=== PATIENT | female | born 1990 | race Caucasian/White ===

== ENCOUNTER 2016-12-01 15:45 | Emergency (ER) | payer OTHER ==
--- NOTE | 2016-12-01 17:55 | ED ORDER SUMMARY ---
..... Patient: NELSON REYNOSO N OrderSheet [facility] VisitID: [id number] [place] [address] 26y, F Registration Date/Time: 12/01/2016 ORDER SHEET Weight: 47.6 kg (stated) Allergies: Compazine GENERAL ORDERS: CBC w Diff Urgent (16:03 12/01/2016 SThom A.R.N.P.) (Ack 16:16 TBergley) (17:38 DDean R.N.) Type & Rh Urgent (16:03 12/01/2016 SThom A.R.N.P.) (Ack 16:16 TBergley) (17:38 DDean R.N.) Serum Quantitative Urgent (16:03 12/01/2016 SThom A.R.N.P.) (Ack 16:16 TBergley) (17:38 DDean R.N.) Wet Prep (Vaginal) (swab) Urgent (16:22 12/01/2016 SThom A.R.N.P.) (16:29 TBergley) GC/Chlamydia (Cervix) (swab) Urgent (16:22 12/01/2016 SThom A.R.N.P.) (16:28 TBergley) Urinalysis Urgent (16:23 12/01/2016 SThom A.R.N.P.) (16:28 TBergley) Urine Urgent (16:23 12/01/2016 SThom A.R.N.P.) (16:28 TBergley) US Pelvic Complete w Transvag Urgent (16:23 12/01/2016 SThom A.R.N.P.) (Ack 16:29 TBergley) (Cancelled: Other17:25 TBergley) US OB 1st Trimester w Transvag (5 weeks) Urgent (17:24 12/01/2016 TBergley written order SThom A.R.N.P.) (Ack 17:26 TBergley) (17:38 DDean R.N.) MEDICATION ORDERS: RhoGAM IM 300 mcg (NOW) (17:44 12/01/2016 SThom A.R.N.P.) (Ack 17:45 DDean R.N.) (17:52 DDean R.N.) IV FLUIDS: ORDER SHEET NOTES: Reason for Study: Abnormal Bleeding US Pelvic Complete w Transvag Comments: LMP 10/23/16 (16:24 12/01/2016 Sadia MichaelR.N.P.) [Electronically signed by Berta Hansen R.N. (22:31 12/01/2016)] [Electronically signed by Chana CortezN.PShikha (23:37 12/01/2016)] [Electronically locked/signed by Berta Hansen R.N. (22:31 12/01/2016)]
--- NOTE | 2016-12-01 17:55 | ED NURSING NOTES ---
Clinical Report - Nurses [facility] [address] [place] [address] 12/01/2016 15:47 Patient: NELSON REYNOSO TRIAGE Triage time 1555. Acuity: LEVEL 3. 15:55. --16:03 Berta Hansen R.N. 15:55 12/01/16. BP: 154/94. HR: 73. RR: 20. O2 saturation: 99%. Temp: 98.7 F. Pain level now: 11/09. --16:03 Berta Hansen R.N. Triage time 1555. Chief Complaint: SPOTTING. --22:31 Berta Hansen R.N. Weight: 47.6 kg stated. Height/Length: 63 inches Per Patient. BMI: 18.6. --16:00 Berta Hansen R.N. Medications TraZODone HCl Oral, at bedtime, for sleep (tapering off, has been without for 2-3 nights ). --16:02 Berta Hansen R.N. Vitamins Oral. --16:02 Berta Hansen R.N. Allergies Compazine. --16:02 Berta Hansen R.N. History Arrived by private vehicle. Historian: patient. Unaccompanied. Primary physician (Efrain). Onset. (spotting , and -- passed alot of blood at 5:30pm yesterday, has not had any more bleeding today. having nausea , and constant ache). ( had a miscarriage 09/14 had D&C after that (and set of her CVS)). No vomiting. PAST MEDICAL HX: OB history: G 3; P 1; Ab 1. SOCIAL HX: Never smoker. History of drug use: marijuana. No alcohol use. --16:03 Berta Hansen R.N. PROBLEMS: Vomiting. Spontaneous (Miscarriage). Cyclical vomiting syndrome. Fibromyalgia. Endometritis. --16:03 Berta Hansen R.N. ADDITIONAL SURGERIES: Laparoscopy. Tonsillectomy. --16:03 Berta Hansen R.N. Interventions ID band on patient. To treatment room. --16:03 Berta Hansen R.N. PHYSICAL ASSESSMENT 15:55. Ambulatory to room. Patient gowned. GENERAL / NEURO / PSYCH: Alert. Oriented X 4. Appears in pain. RESPIRATORY: Respirations not labored. CVS: Capillary refill less than 2 seconds. GI / : ( denies pain with urination, denies frequency or urgency). SKIN: Skin is warm and dry. --16:05 Berta Hansen R.N. NURSING PROGRESS NOTES 15:55. Patient gowned. Head of bed elevated. Reassurance given. Patient identifiers checked. Call light placed in reach. Side rails up. Bed placed in lowest position. Patient ready for evaluation- chart flagged. --16:04 Berta Hansen R.N. 16:13 12/01/16. Patient ID band checked for patient name and birthdate: patient confirmed. Clean catch urine collected with return of yellow-colored clear urine; sample sent to lab. Specimen labeled in the presence of the patient. --16:13 Berta Hansen R.N. 16:20. PELVIC EXAM: Pelvic exam performed by [employer] OPERATOR. Assisted by one nurse. Preparation: pelvic tray; patient placed in lithotomy position. Procedure: speculum exam. Specimens collected and sent to lab: GC, chlamydia and DNA probe. Status post-procedure: she was stable. Total time of assist / procedure: 15 minutes. --16:25 Berta Hansen R.N. 16:34 12/01/16. Patient ID band checked for patient name and birthdate: patient confirmed. Blood samples drawn by lab per protocol ; labeled in presence of the patient and sent to lab: rainbow set. --16:34 Berta Hansen R.N. 16:35 12/01/16. ( Pt given water, and informed of US ETA). --16:35 Berta Hansen R.N. 17:22 US in room to do exam. --17:37 Berta Hansen R.N. 17:47 12/01/2016 Rhogam IM 300 mcg given. Given in the right ventral gluteus. Allergies verified and confirmed 5 rights. --17:52 Berta Hansen R.N. 17:50 Pt given Rhogam, talking with ERNP at length regarding findings and follow up. --22:30 Berta Hansen R.N. DISPOSITION / DISCHARGE 18:00. Condition at departure: stable. No learning barriers present. Discharge instructions provided and reviewed with the patient. Treatments reviewed (repeat preg level saturday). Reviewed referrals (follow up with your Dr. on Saturday). Patient verbalized understanding. Written instructions provided in Iraqi. The patient was discharged home and unaccompanied at time of discharge. She left the Emergency Department ambulatory and via private vehicle. Patient driving. --22:29 Berta Hansen R.N. 18:00 12/01/16. BP: 138/86. HR: 72. RR: 18. O2 saturation: 100%. Temp: deferred. Pain level now: 11/09. --22:29 Berta Hansen R.N. Locked/Released at 12/01/2016 22:31 by Berta Hansen R.N.
--- NOTE | 2016-12-01 17:55 | ED CLINICAL REPORT ---
Clinical Report - Physicians/Mid Levels [facility] [address] [place] [address] 12/01/2016 15:47 Patient: NELSON REYNOSO Time Seen: 1615 PM. Arrived- By private vehicle. Historian- patient. HISTORY OF PRESENT ILLNESS Chief Complaint: VAGINAL BLEEDING. This started 3 days-spotted Sat/-heavy bldg last PM-now just slightly crampy and still present. The symptoms are described as mild. Modifying factors. Not worsened by anything. Not relieved by anything. The patient has had mild, crampy abdominal pain. The pain is described as located in the suprapubic region and lower abdomen. No nausea or vomiting. No pelvic pain, vaginal pain, vaginal discharge, vaginal itching or genital lesions. No pain with urination. Currently : LNMP: Oct 23 EDC: Jul 30. In 1st trimester. Has had care in clinic. G 3. P 1. Ab 1. Receiving care. Similar symptoms previously: Recent medical care: The patient was seen recently in a clinic (quant drawn this AM at clinic-sent out). REVIEW OF SYSTEMS No nausea, vomiting, diarrhea, fever or chills. PAST HISTORY See nurses notes. Endometriosis. ( 09/14: SAB, cytotec for incomplete SAB Cyclic vomiting syndrome, chronic pelvic/abd pain,fibro (has guidelines in [facility])). No history of ectopic , hypertension or diabetes mellitus. Surgeries: Laparoscopy. Tonsillectomy. Medications: Vitamins Oral. TraZODone HCl Oral, at bedtime, for sleep (tapering off, has been without for 2-3 nights ). Allergies: Compazine. SOCIAL HISTORY Never smoker. History of occasional drug use: marijuana. No alcohol use. ADDITIONAL NOTES The nursing notes have been reviewed. PHYSICAL EXAM Vital Signs: 12/01/2016 15:55 BP: 154/94. HR: 73. RR: 20. O2 saturation: 99%. Temp: 98.7 F. Pain level now: 2/10. Have been reviewed and appear to be correct. Appearance: Alert. Oriented X3. No acute distress. Anxious. HEENT: Normal external inspection. Neck: Neck supple. Respiratory: No respiratory distress. Abdomen: Soft and nontender. : Speculum exam performed. External inspection normal. Slight vaginal bleeding, consisting of dark blood, ((scant amt in vault)). Cervical os open slightly. Skin: Skin warm and dry. Normal skin color. Normal skin turgor. Neuro: Oriented X 3. Mood/affect normal. LABS, X-RAYS, AND EKG Pelvic Sonogram: An intrauterine (gestational sac w/ yolk) is present. A small subchorionic hemorrhage is present. No cardiac activity visualized. An ovarian cyst is present. No free fluid. Laboratory Tests: Laboratory tests have been ordered, with results reviewed and considered in the medical decision making process. Urinalysis: (MATI: 12/01/2016 16:10) ( [facility] 12/01/2016 17:17) Final results Test Result Flag Units (Reference) URINE COLOR YELLOW URINE APPEARANCE CLEAR URINE GLUCOSE NEGATIVE (NEGATIVE) URINE BILIRUBIN NEGATIVE (NEGATIVE) URINE KETONE TRACE (NEGATIVE) URINE SPECIFIC GRAVITY 1.015 (1.010-1.030) URINE PH 7.0 (5.0-8.0) URINE PROTEIN NEGATIVE (NEGATIVE) URINE UROBILINOGEN 0.2 EU/dL (0.2-1.0) URINE NITRITE NEGATIVE (NEGATIVE) URINE BLOOD NEGATIVE (NEGATIVE) URINE LEUKOCYTE ESTERASE NEGATIVE (NEGATIVE) URINE RBC NONE SEEN rbc/hpf (0-1) URINE WBC NONE SEEN wbc/hpf (0-1) URINE EPITHELIAL CELLS 0-1 EPI/hpf (0-5) URINE BACTERIA NONE SEEN (NONE SEEN) URINE COMMENT N Urine: (MATI: 12/01/2016 16:10) ( [facility] [place] 12/01/2016 16:36) Final results Test Result Flag Units (Reference) URINE POSITIVE CBC w Diff: (MATI: 12/01/2016 16:30) ( [facility] [place] 12/01/2016 17:14) Final results Test Result Flag Units (Reference) WHITE BLOOD COUNT 10.9 K/uL (4.5-11.5) RED BLOOD COUNT 4.20 M/uL (4.00-5.20) HEMOGLOBIN 12.7 gm/dL (12.0-16.0) HEMATOCRIT 38.0 % (36.0-46.0) MEAN CELL VOLUME 90 fL (80-100) MEAN CORPUSCULAR HGB 30 pg (26-34) MEAN CORPUSCULAR HGB CONC 33 g/dL (31-37) RED CELL DISTRIBUTION WIDTH 13.5 % (11.6-14.8) PLATELET COUNT 355 K/uL (150-400) NEUTROPHIL % 65.6 % (50-75) LYMPH % 26.5 % (25-40) MONO % 7.4 % (3-14) EOSINOPHIL % 0.3 % (0-4) BASOPHIL % 0.2 % (0-2) Serum Quantitative: (MATI: 12/01/2016 16:30) ( [facility] [place] 12/01/2016 17:47) Final results Test Result Flag Units (Reference) BETA HCG, QUANTITATIVE 13566 mIU/mL REFERENCE RANGE:Adult Males: <2 mIU/mLNon- Females: <6 mIU/mL Females:Approximate Approximate hCGGestational Age Range (mIU/mL) 0-1 week 0-501-2 weeks 40-3002-3 weeks 100-44486-9 weeks 500-91085-3 months 5,000-200,0002-3 months 10,000-100,0002nd trimester 3,000-50,0003rd trimester 1,000-50,000 Wet Prep: (MATI: 12/01/2016 16:20) ( [facility] 12/01/2016 16:51) Final results SPECIMEN DESCRIPTION: SWAB Test Result Flag Units (Reference) WET MOUNT CLUE CELLS:: NONE EPITHELIAL CELLS: 2+ -- SOURCE?: CERVIX WHITE BLOOD CELLS: 2+ TRICHOMONAS:: NONE -- YEAST:: NONE Type & Rh: (MATI: 12/01/2016 16:30) ( [facility] 12/01/2016 17:32) Final results Test Result Flag Units (Reference) PATIENT BLOOD TYPE A Negative . PROGRESS AND PROCEDURES Course of Care: Rh negative-Rhogam given Miscarried in Dec-anxious something wrong w/ her Supportive discussion US reassuring=sac noted within uterus, approp to gest age Subchorionic bleed explained Has appt Mond-will keep. Rest for peace of mind (not actual prevention of bad outcome) suggested-and nothing in vagina til released. Patient is stable. Patient/family counseled. Disposition: Discharged. Condition: stable. CLINICAL IMPRESSION First trimester subchorionic hemorrhage. Threatened . INSTRUCTIONS No strenuous activity. No sexual contact. (You will need a repeat hormone test next week. See your provider on Saturday. No evidence of infection Nothing in vagina til released Rhogam given Test Result Flag (Reference) PATIENT BLOOD TYPE A Negative Serum Quantitative: (MATI: 12/01/2016 16:30) ( [facility] 12/01/2016 17:47) Final results Test Result Flag (Reference) BETA HCG, QUANTITATIVE 12004 mIU/mL -appropriate). Warnings: GENERAL WARNINGS: Return or contact your physician immediately if your condition worsens or changes unexpectedly, if not improving as expected, or if other problems arise. Follow-up: Follow up with your doctor Saturday in about. Understanding of the discharge instructions verbalized by patient. (Electronically signed by Chana Cortez A.R.N.P. 12/01/2016 23:37)
--- NOTE | 2016-12-01 17:55 | ED CLINICAL REPORT ---
Clinical Report - Physicians/Mid Levels [facility] [address] [place] [address] 12/01/2016 15:47 Patient: NELSON REYNOSO Time Seen: 1615 PM. Arrived- By private vehicle. Historian- patient. HISTORY OF PRESENT ILLNESS Chief Complaint: VAGINAL BLEEDING. This started 3 days-spotted Sat/-heavy bldg last PM-now just slightly crampy and still present. The symptoms are described as mild. Modifying factors. Not worsened by anything. Not relieved by anything. The patient has had mild, crampy abdominal pain. The pain is described as located in the suprapubic region and lower abdomen. No nausea or vomiting. No pelvic pain, vaginal pain, vaginal discharge, vaginal itching or genital lesions. No pain with urination. Currently : LNMP: Oct 23 EDC: Jul 30. In 1st trimester. Has had care in clinic. G 3. P 1. Ab 1. Receiving care. Similar symptoms previously: Recent medical care: The patient was seen recently in a clinic (quant drawn this AM at clinic-sent out). REVIEW OF SYSTEMS No nausea, vomiting, diarrhea, fever or chills. PAST HISTORY See nurses notes. Endometriosis. ( 09/14: SAB, cytotec for incomplete SAB Cyclic vomiting syndrome, chronic pelvic/abd pain,fibro (has guidelines in [facility])). No history of ectopic , hypertension or diabetes mellitus. Surgeries: Laparoscopy. Tonsillectomy. Medications: Vitamins Oral. TraZODone HCl Oral, at bedtime, for sleep (tapering off, has been without for 2-3 nights ). Allergies: Compazine. SOCIAL HISTORY Never smoker. History of occasional drug use: marijuana. No alcohol use. ADDITIONAL NOTES The nursing notes have been reviewed. PHYSICAL EXAM Vital Signs: 12/01/2016 15:55 BP: 154/94. HR: 73. RR: 20. O2 saturation: 99%. Temp: 98.7 F. Pain level now: 2/10. Have been reviewed and appear to be correct. Appearance: Alert. Oriented X3. No acute distress. Anxious. HEENT: Normal external inspection. Neck: Neck supple. Respiratory: No respiratory distress. Abdomen: Soft and nontender. : Speculum exam performed. External inspection normal. Slight vaginal bleeding, consisting of dark blood, ((scant amt in vault)). Cervical os open slightly. Skin: Skin warm and dry. Normal skin color. Normal skin turgor. Neuro: Oriented X 3. Mood/affect normal. LABS, X-RAYS, AND EKG Pelvic Sonogram: An intrauterine (gestational sac w/ yolk) is present. A small subchorionic hemorrhage is present. No cardiac activity visualized. An ovarian cyst is present. No free fluid. Laboratory Tests: Laboratory tests have been ordered, with results reviewed and considered in the medical decision making process. Urinalysis: (MATI: 12/01/2016 16:10) ( [facility] 12/01/2016 17:17) Final results Test Result Flag Units (Reference) URINE COLOR YELLOW URINE APPEARANCE CLEAR URINE GLUCOSE NEGATIVE (NEGATIVE) URINE BILIRUBIN NEGATIVE (NEGATIVE) URINE KETONE TRACE (NEGATIVE) URINE SPECIFIC GRAVITY 1.015 (1.010-1.030) URINE PH 7.0 (5.0-8.0) URINE PROTEIN NEGATIVE (NEGATIVE) URINE UROBILINOGEN 0.2 EU/dL (0.2-1.0) URINE NITRITE NEGATIVE (NEGATIVE) URINE BLOOD NEGATIVE (NEGATIVE) URINE LEUKOCYTE ESTERASE NEGATIVE (NEGATIVE) URINE RBC NONE SEEN rbc/hpf (0-1) URINE WBC NONE SEEN wbc/hpf (0-1) URINE EPITHELIAL CELLS 0-1 EPI/hpf (0-5) URINE BACTERIA NONE SEEN (NONE SEEN) URINE COMMENT N Urine: (MATI: 12/01/2016 16:10) ( [facility] [place] 16:36) Final results Test Result Flag Units (Reference) URINE POSITIVE CBC w Diff: (MATI: 12/01/2016 16:30) ( [facility] [place] 17:14) Final results Test Result Flag Units (Reference) WHITE BLOOD COUNT 10.9 K/uL (4.5-11.5) RED BLOOD COUNT 4.20 M/uL (4.00-5.20) HEMOGLOBIN 12.7 gm/dL (12.0-16.0) HEMATOCRIT 38.0 % (36.0-46.0) MEAN CELL VOLUME 90 fL (80-100) MEAN CORPUSCULAR HGB 30 pg (26-34) MEAN CORPUSCULAR HGB CONC 33 g/dL (31-37) RED CELL DISTRIBUTION WIDTH 13.5 % (11.6-14.8) PLATELET COUNT 355 K/uL (150-400) NEUTROPHIL % 65.6 % (50-75) LYMPH % 26.5 % (25-40) MONO % 7.4 % (3-14) EOSINOPHIL % 0.3 % (0-4) BASOPHIL % 0.2 % (0-2) Serum Quantitative: (MATI: 12/01/2016 16:30) ( [facility] [place]/01[facility] 17:47) Final results Test Result Flag Units (Reference) BETA HCG, QUANTITATIVE 71239 mIU/mL REFERENCE RANGE:Adult Males: <2 mIU/mLNon- Females: <6 mIU/mL Females:Approximate Approximate hCGGestational Age Range (mIU/mL) 0-1 week 0-501-2 weeks 40-3002-3 weeks 100-02197-0 weeks 500-68261-9 months 5,000-200,0002-3 months 10,000-100,0002nd trimester 3,000-50,0003rd trimester 1,000-50,000 Wet Prep: (MATI: 12/01/2016 16:20) ( [facility] 12/01/2016 16:51) Final results SPECIMEN DESCRIPTION: SWAB Test Result Flag Units (Reference) WET MOUNT CLUE CELLS:: NONE EPITHELIAL CELLS: 2+ -- SOURCE?: CERVIX WHITE BLOOD CELLS: 2+ TRICHOMONAS:: NONE -- YEAST:: NONE Type & Rh: (MATI: 12/01/2016 16:30) ( [facility] 12/01/2016 17:32) Final results Test Result Flag Units (Reference) PATIENT BLOOD TYPE A Negative . PROGRESS AND PROCEDURES Course of Care: Rh negative-Rhogam given Miscarried in Dec-anxious something wrong w/ her Supportive discussion US reassuring=sac noted within uterus, approp to gest age Subchorionic bleed explained Has appt Mond-will keep. Rest for peace of mind (not actual prevention of bad outcome) suggested-and nothing in vagina til released. Patient is stable. Patient/family counseled. Disposition: Discharged. Condition: stable. CLINICAL IMPRESSION First trimester subchorionic hemorrhage. Threatened . INSTRUCTIONS No strenuous activity. No sexual contact. (You will need a repeat hormone test next week. See your provider on Saturday. No evidence of infection Nothing in vagina til released Rhogam given Test Result Flag (Reference) PATIENT BLOOD TYPE A Negative Serum Quantitative: (MATI: 12/01/2016 16:30) ( [facility] 12/01/2016 17:47) Final results Test Result Flag (Reference) BETA HCG, QUANTITATIVE 66236 mIU/mL -appropriate). Warnings: GENERAL WARNINGS: Return or contact your physician immediately if your condition worsens or changes unexpectedly, if not improving as expected, or if other problems arise. Follow-up: Follow up with your doctor Saturday in about. Understanding of the discharge instructions verbalized by patient. (Electronically signed by Chana Cortez A.R.N.P. 12/01/2016 23:37)
--- NOTE | 2016-12-01 17:55 | ED ORDER SUMMARY ---
..... Patient: NELSON REYNOSO N OrderSheet [facility] VisitID: [id number] [place] [address] 26y, F Registration Date/Time: 12/01/2016 ORDER SHEET Weight: 47.6 kg (stated) Allergies: Compazine GENERAL ORDERS: CBC w Diff Urgent (16:03 12/01/2016 SThom A.R.N.P.) (Ack 16:16 TBergley) (17:38 DDean R.N.) Type & Rh Urgent (16:03 12/01/2016 SThom A.R.N.P.) (Ack 16:16 TBergley) (17:38 DDean R.N.) Serum Quantitative Urgent (16:03 12/01/2016 SThom A.R.N.P.) (Ack 16:16 TBergley) (17:38 DDean R.N.) Wet Prep (Vaginal) (swab) Urgent (16:22 12/01/2016 SThom A.R.N.P.) (16:29 TBergley) GC/Chlamydia (Cervix) (swab) Urgent (16:22 12/01/2016 SThom A.R.N.P.) (16:28 TBergley) Urinalysis Urgent (16:23 12/01/2016 SThom A.R.N.P.) (16:28 TBergley) Urine Urgent (16:23 12/01/2016 SThom A.R.N.P.) (16:28 TBergley) US Pelvic Complete w Transvag Urgent (16:23 12/01/2016 SThom A.R.N.P.) (Ack 16:29 TBergley) (Cancelled: Other17:25 TBergley) US OB 1st Trimester w Transvag (5 weeks) Urgent (17:24 12/01/2016 TBergley written order SThom A.R.N.P.) (Ack 17:26 TBergley) (17:38 DDean R.N.) MEDICATION ORDERS: RhoGAM IM 300 mcg (NOW) (17:44 12/01/2016 SThom A.R.N.P.) (Ack 17:45 DDean R.N.) (17:52 DDean R.N.) IV FLUIDS: ORDER SHEET NOTES: Reason for Study: Abnormal Bleeding US Pelvic Complete w Transvag Comments: LMP 10/23/16 (16:24 12/01/2016 Sadia MichaelR.N.P.) [Electronically signed by Berta Hansen R.N. (22:31 12/01/2016)] [Electronically signed by Chana CortezN.PShikha (23:37 12/01/2016)] [Electronically locked/signed by Berta Hansen R.N. (22:31 12/01/2016)]
--- NOTE | 2016-12-01 18:13 | DIAGNOSTIC IMAGING REPORT ---
PROCEDURE: US OB 1ST TRIMESTER W/TRANSVAG INDICATION: BLEEDING TECHNIQUE: Milligan scale, color, and spectral Doppler transabdominal and endovaginal sonographic images of the first trimester gravid uterus were obtained. COMPARISON: None. FINDINGS: TRANSABDOMINAL SCANS: Single intrauterine gestational sac. TRANSVAGINAL SCANS: Yolk sac is present. No pole present. Gestational sac diameter 9.7 mm, 6 weeks. There is a subchorionic hemorrhage which measures 120 x 1.6 x 0.5 cm. Left corpus luteum cyst. IMPRESSION: 1. Single intrauterine gestational sac without pole. Recommend follow-up Beta hCG and ultrasound 2. Subchorionic hemorrhage.
--- NOTE | 2016-12-01 23:38 | ED MED RECONCILIATION SUMMARY ---
Patient: NELSON REYNOSO Medication Reconciliation Report [facility] VisitID: [id number] [address] [place] [address] 26y, F Registration Date/Time: 12/01/2016 Weight: 47.6 kg Height/Length: 63 in. BMI: 18.6 ALLERGIES: Compazine The patient's Home Medications are listed below: THE FOLLOWING MEDICATIONS NEED TO BE RECONCILED: Vitamins Oral TraZODone HCl Oral, at bedtime, for sleep, tapering off, has been without for 2-3 nights The source(s) of the original Home Medication information: Not obtained. The following Medications were given to the patient in the Emergency Department: Rhogam [IM] IM 300 mcg, administered: 12/01/2016 5:47:00 PM The following Medications were prescribed to the patient: None.
--- NOTE | 2016-12-01 23:38 | ED DISCHARGE INSTRUCTIONS ---
Patient: NELSON REYNOSO General Instructions [facility] VisitID: [id number] [place] [address] 26y, F Registration Date/Time: 12/01/2016 First trimester subchorionic hemorrhage. INSTRUCTIONS No strenuous activity. No sexual contact. (You will need a repeat hormone test next week. See your provider on Saturday. No evidence of infection Nothing in vagina til released Rhogam given Test Result Flag (Reference) PATIENT BLOOD TYPE A Negative Serum Quantitative: (MATI: 12/01/2016 16:30) ( MsgRcvd 12/01/2016 17:47) Final results Test Result Flag (Reference) BETA HCG, QUANTITATIVE 00371 mIU/mL -appropriate). Warnings: GENERAL WARNINGS: Return or contact your physician immediately if your condition worsens or changes unexpectedly, if not improving as expected, or if other problems arise. Follow-up: Follow up with your doctor Saturday in about. Understanding of the discharge instructions verbalized by patient. ADDITIONAL INFORMATION Possible Miscarriage (Threatened ) During early (first three months), it is not uncommon to have a small amount of bleeding. This can be entirely normal. But heavy bleeding or severe cramping can be an early sign of miscarriage. A miscarriage means unexpected loss of your . In about half of patients with bleeding or cramping during early , these symptoms will stop and the will continue normally. However, half of the time a miscarriage will occur. A miscarriage may occur due to various causes. These include a problem with the babys chromosomes (genes that carry the information needed for life) or with fertilization or implantation that didnt happen correctly. In most cases no cause can be found. Be reassured that this is not the result of anything that you did wrong, and it will not interfere with your ability to become in the future. Home Care: To improve the chance of keeping this , you should do the following: Rest in bed until the pain and bleeding stop. Do not have sexual intercourse for the next 3 weeks. Use sanitary napkins instead of tampons. Do not douche. Follow-Up: Make an appointment with your doctor within the next week, or as directed by our staff. Note: If you had an ultrasound, it will be reviewed by a specialist. You will be notified of any new findings that may affect your care. Get Prompt Medical Attention if any of the following occur: Vaginal bleeding or pain for more than three days Heavy bleeding (soaking one new pad an hour over three hours) Fever of 100.4F (38C) or higher, or as directed by your healthcare provider Increasing lower abdominal pain Weakness, dizziness, or fainting Passage of anything that resembles tissue: pink or grayish membrane or solid material (save the tissue in a clean container and bring to the doctor) You have been given the following additional information: Possible Miscarriage (Threatened ) No strenuous activity. (Electronically signed by Chana Cortez A.R.N.P. 12/01/2016 23:37)
--- NOTE | 2016-12-01 23:38 | ED MAR SUMMARY ---
..... Medication Administration Record [facility] [address] [place] [address] Patient: NELSON REYNOSO Visit ID: [id number] 26y, F Weight: 47.6 kg Height/Length: 63 in BMI: 18.6 ALLERGIES: Compazine Given 17:47 12/01/2016 Tyrone, Joshua Hampton Medication Administered: RHOGAM [IM], Dose: 300 mcg IM. Medication Ordered: RhoGAM IM 300 mcg (NOW).
--- NOTE | 2016-12-01 23:38 | ED MAR SUMMARY ---
..... Medication Administration Record [facility] [address] [place] [address] Patient: NELSON REYNOSO Visit ID: [id number] 26y, F Weight: 47.6 kg Height/Length: 63 in BMI: 18.6 ALLERGIES: Compazine Given 17:47 12/01/2016 Tyrone, Joshua Hampton Medication Administered: RHOGAM [IM], Dose: 300 mcg IM. Medication Ordered: RhoGAM IM 300 mcg (NOW).
--- NOTE | 2016-12-01 23:38 | ED MED RECONCILIATION SUMMARY ---
Patient: NELSON REYNOSO Medication Reconciliation Report [facility] VisitID: [id number] [address] [place] [address] 26y, F Registration Date/Time: 12/01/2016 Weight: 47.6 kg Height/Length: 63 in. BMI: 18.6 ALLERGIES: Compazine The patient's Home Medications are listed below: THE FOLLOWING MEDICATIONS NEED TO BE RECONCILED: Vitamins Oral TraZODone HCl Oral, at bedtime, for sleep, tapering off, has been without for 2-3 nights The source(s) of the original Home Medication information: Not obtained. The following Medications were given to the patient in the Emergency Department: Rhogam [IM] IM 300 mcg, administered: 12/01/2016 5:47:00 PM The following Medications were prescribed to the patient: None.
--- NOTE | 2016-12-01 23:38 | ED DISCHARGE INSTRUCTIONS ---
Patient: NELSON REYNOSO General Instructions [facility] VisitID: [id number] [place] [address] 26y, F Registration Date/Time: 12/01/2016 First trimester subchorionic hemorrhage. INSTRUCTIONS No strenuous activity. No sexual contact. (You will need a repeat hormone test next week. See your provider on Saturday. No evidence of infection Nothing in vagina til released Rhogam given Test Result Flag (Reference) PATIENT BLOOD TYPE A Negative Serum Quantitative: (MATI: 12/01/2016 16:30) ( MsgRcvd 12/01/2016 17:47) Final results Test Result Flag (Reference) BETA HCG, QUANTITATIVE 61537 mIU/mL -appropriate). Warnings: GENERAL WARNINGS: Return or contact your physician immediately if your condition worsens or changes unexpectedly, if not improving as expected, or if other problems arise. Follow-up: Follow up with your doctor Saturday in about. Understanding of the discharge instructions verbalized by patient. ADDITIONAL INFORMATION Possible Miscarriage (Threatened ) During early (first three months), it is not uncommon to have a small amount of bleeding. This can be entirely normal. But heavy bleeding or severe cramping can be an early sign of miscarriage. A miscarriage means unexpected loss of your . In about half of patients with bleeding or cramping during early , these symptoms will stop and the will continue normally. However, half of the time a miscarriage will occur. A miscarriage may occur due to various causes. These include a problem with the babys chromosomes (genes that carry the information needed for life) or with fertilization or implantation that didnt happen correctly. In most cases no cause can be found. Be reassured that this is not the result of anything that you did wrong, and it will not interfere with your ability to become in the future. Home Care: To improve the chance of keeping this , you should do the following: Rest in bed until the pain and bleeding stop. Do not have sexual intercourse for the next 3 weeks. Use sanitary napkins instead of tampons. Do not douche. Follow-Up: Make an appointment with your doctor within the next week, or as directed by our staff. Note: If you had an ultrasound, it will be reviewed by a specialist. You will be notified of any new findings that may affect your care. Get Prompt Medical Attention if any of the following occur: Vaginal bleeding or pain for more than three days Heavy bleeding (soaking one new pad an hour over three hours) Fever of 100.4F (38C) or higher, or as directed by your healthcare provider Increasing lower abdominal pain Weakness, dizziness, or fainting Passage of anything that resembles tissue: pink or grayish membrane or solid material (save the tissue in a clean container and bring to the doctor) You have been given the following additional information: Possible Miscarriage (Threatened ) No strenuous activity. (Electronically signed by Chana Cortez A.R.N.P. 12/01/2016 23:37)
== END 2016-12-01 18:00 | disposition home or self-care (01) ==
LOC: ED SRH 15:45
DX: O20.0 Threatened abortion (principal); Z3A.00 Weeks of gestation of pregnancy not specified; Z88.5 Allergy status to narcotic agent; Z88.8 Allergy status to other drugs, medicaments and biological substances
CPT/HCPCS: 90001; 90004; 90074; 90155; 90195; 90197; 91227; 91228; 93070; 95059

== ENCOUNTER 2016-12-05 17:37 | Emergency (ER) | payer OTHER ==
--- NOTE | 2016-12-06 02:36 | ED ORDER SUMMARY ---
..... Patient: NELSON SCOTT OrderSheet [facility] VisitID: [id number] [place] [address] 26y, F Registration Date/Time: 12/05/2016 ORDER SHEET Weight: 49.4 kg (stated) Allergies: Compazine GENERAL ORDERS: CBC w Diff Urgent (17:59 12/05/2016 HBivens A.R.N.P.) (Ack 18:00 KHoerner) (18:15 JBoardley R.N.) BMP Urgent (17:59 12/05/2016 HBivens A.R.N.P.) (Ack 18:00 KHoerner) (18:15 JBoardley R.N.) Serum Quantitative Urgent (17:59 12/05/2016 HBivens A.R.N.P.) (Ack 18:00 KHoerner) (18:15 JBoardley R.N.) Pelvic Exam Setup (17:59 12/05/2016 HBivens A.R.N.P.) (Ack 18:00 KHoerner) (18:01 KHoerner) MEDICATION ORDERS: IV FLUIDS: ORDER SHEET NOTES: [Electronically signed by Juan M Scott R.N. (19:32 12/05/2016)] [Electronically signed by Desire KulkarniR.N.PShikha (21:27 12/05/2016)] [Electronically locked/signed by Juan M Scott R.N. (19:32 12/05/2016)]
--- NOTE | 2016-12-06 02:36 | ED CLINICAL REPORT ---
Clinical Report - Physicians/Mid Levels [facility] [address] [place] [address] 12/05/2016 17:37 Patient: NELSON REYNOSO Time Seen: 17:45; upon arrival, initial patient contact, initial documentation, patient care assumed. Arrived- By private vehicle. Historian- patient. RETURN VISIT: recently seen in this ED by another ED physician. Seen now for the same problem as before. HISTORY OF PRESENT ILLNESS Chief Complaint: VAGINAL BLEEDING. This started about 1 weeks ago and still present. The symptoms are described as mild. The patient has had intermittent, crampy right-sided, suprapubic and left-sided pelvic pain, described as "pain", with vaginal bleeding. She has had lower back pain. 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 She is . No vaginal pain, flank pain, vaginal discharge, pain with urination or urinary frequency. No urgency of urination or hematuria. Sexually active. (pt has prenatals that she got and is taking them, has refills). Currently . In 1st trimester. confirmed with serum test. Has had no care. Recent sonogram showed intrauterine and incomplete . G 3. P 1. Ab 1. Not receiving care. Similar symptoms previously: None. Recent medical care: The patient was seen recently at this facility in the emergency department. ( pt txed here 12/01, dx with threatened miscarriage and vag bleed, went to on saturday for f/u for blood work, but they couldn't get it, so she doens't know if she is still or not). REVIEW OF SYSTEMS No vomiting, diarrhea, fever or chest pain. All systems otherwise negative, except as recorded above. PAST HISTORY See nurses notes. ( PROBLEMS: Threatened . Subchorionic Hemorrhage. Endometriosis. OB History. Vomiting. Spontaneous (Miscarriage). Care. Cyclical vomiting syndrome. Fibromyalgia. Endometritis. --17:50 Po Mendoza R.N. ADDITIONAL SURGERIES: Laparoscopy. Tonsillectomy. --17:50 Po Mendoza R.N.). SOCIAL HISTORY Never smoker. Occasional alcohol use. History of heavy drug use: marijuana. Recently used drugs yesterday. Is not under influence in ED. No recent travel. Is a local resident. FAMILY HISTORY Negative. ADDITIONAL NOTES The nursing notes have been reviewed with agreement regarding the chief complaint, HPI, ROS, PMH and patient medications and allergies. PHYSICAL EXAM Vital Signs: 12/05/2016 17:46 BP: 144/81. HR: 88. RR: 18. O2 saturation: 99%. Temp: 98 F. Pain level now: 5/10. Have been reviewed as normal and appear to be correct. Appearance: Alert. Oriented X3. No acute distress. HEENT: Normal external inspection. ENT: Pharynx normal. Neck: Neck supple. CVS: Heart sounds normal. Respiratory: No respiratory distress. Breath sounds normal. Chest nontender. Abdomen: Soft and nontender. No organomegaly. No mass. Back: Normal external inspection. : External inspection normal. Speculum exam abnormal. Slight vaginal bleeding, consisting of dark blood, via the cervical os. No vaginal bleeding from a cervical lesion or vaginal laceration. No vaginal discharge. Cervical os closed. No tissue present. No cervicitis. No herpes-like lesions. Bimanual exam normal. Skin: Skin warm and dry. Normal skin color. No rash. Normal skin turgor. Extremities: Extremities nontender. No lower extremity edema. Neuro: Oriented X 3. Mood/affect normal. No motor deficit. No sensory deficit. LABS, X-RAYS, AND EKG Laboratory Tests: CBC w Diff: (MATI: 12/05/2016 18:09) ( MsgRcvd 12/05/2016 18:21) Final results Test Result Flag Units (Reference) WHITE BLOOD COUNT 11.9 H K/uL (4.5-11.5) RED BLOOD COUNT 4.08 M/uL (4.00-5.20) HEMOGLOBIN 12.4 gm/dL (12.0-16.0) HEMATOCRIT 36.9 % (36.0-46.0) MEAN CELL VOLUME 91 fL (80-100) MEAN CORPUSCULAR HGB 30 pg (26-34) MEAN CORPUSCULAR HGB CONC 34 g/dL (31-37) RED CELL DISTRIBUTION WIDTH 13.6 % (11.6-14.8) PLATELET COUNT 315 K/uL (150-400) NEUTROPHIL % 59.0 % (50-75) LYMPH % 31.2 % (25-40) MONO % 6.8 % (3-14) EOSINOPHIL % 2.7 % (0-4) BASOPHIL % 0.3 % (0-2) BMP: (MATI: 12/05/2016 18:09) ( MsgRcvd 12/05/2016 18:57) Final results Test Result Flag Units (Reference) GLUCOSE 79 mg/dL (70-110) BUN 5 L mg/dL (7-18) CREATININE 0.6 mg/dL (0.6-1.3) Estimated GFR >60 mL/min Estimated GFR- >60 mL/min Note: Persistent reduction over 3 months in eGFR<60 mL/min/1.73 m2 defines CKD. Patients with eGFR values>=60 mL/min/1.73 m2 may also have CKD if evidence ofpersistent proteinuria. Additional information may be foundat www.kidney.org. SODIUM 141 mmol/L (136-145) POTASSIUM 3.5 mmol/L (3.5-5.1) CHLORIDE 104 mmol/L (98-107) CARBON DIOXIDE 26 mmol/L (21-32) CALCIUM 9.1 mg/dL (8.5-10.1) BETA HCG, QUANTITATIVE 32485 mIU/mL REFERENCE RANGE:Adult Males: <2 mIU/mLNon- Females: <6 mIU/mL Females:Approximate Approximate hCGGestational Age Range (mIU/mL) 0-1 week 0-501-2 weeks 40-3002-3 weeks 100-91285-4 weeks 500-86972-9 months 5,000-200,0002-3 months 10,000-100,0002nd trimester 3,000-50,0003rd trimester 1,000-50,000 . PROGRESS AND PROCEDURES Course of Care: 18:05 12/05/16. old er visit reviewed H&H - 12.7 & 38 Blood [place] A- [place] 9[address] wet mount unremarkable rhogam given Pelvic Sonogram: An intrauterine (gestational sac w/ yolk) is present. A small subchorionic hemorrhage is present. No cardiac activity visualized. An ovarian cyst is present. No free fluid. 18:52 12/05/16. pt has allen with guidelines for cyclic vomiting, no controlled substances, and some narcs, see report for full details. Patient counseled in person regarding the patient's stable condition, test results and diagnosis. 18:57. Differential Diagnosis: I considered vaginitis, vulvar infection, ovarian cysts, polycystic disease of the ovaries, pelvic inflammatory disease, endometriosis, uterine fibroids, intrauterine , incomplete , threatened , retained products of , endometritis, endometrial carcinoma, fibroids and dysfunctional uterine bleeding as a possible cause of vaginal bleeding in this patient. This is a partial list of diagnoses considered. Above considerations are based on history, physical exam, reassessment and laboratory data. Differential diagnosis was discussed with patient. Disposition: Discharged home in good and unchanged condition (19:05). Condition: good and stable. CLINICAL IMPRESSION Threatened ; positive test in emergency department. INSTRUCTIONS (Vagina rest, as discussed). Warnings: GENERAL WARNINGS: Return or contact your physician immediately if your condition worsens or changes unexpectedly, if not improving as expected, or if other problems arise. Specifically return if problem worsens. Understanding of the discharge instructions verbalized by patient. Follow-up with: Aristeo Jones MD, Obstetrics/Gynecology, , [facility], [address] [place] [address] Follow up in about two days even if well. Call for an appointment. Summary of care provided to patient. (Electronically signed by Desire Kulkarni A.R.N.P. 12/05/2016 21:27)
--- NOTE | 2016-12-06 02:36 | ED NURSING NOTES ---
Clinical Report - Nurses [facility] [address] [place] [address] 12/05/2016 17:37 Patient: NELSON SCOTT TRIAGE Triage time 17:46. Acuity: LEVEL 3. Chief Complaint: VAGINAL BLEEDING. 17:47 12/05/16. 17:46 12/05/16. Alert. No acute distress. --17:55 Po Mendoza R.N. 17:46 12/05/16. BP: 144/81. HR: 88. RR: 18. O2 saturation: 99% on room air. Temp: 98 F (oral). Pain level now: 5/10. --17:55 Po Mendoza R.N. Weight: 49.4 kg stated. Height/Length: 63 inches Per Patient. BMI: 19.3. --17:55 Po Mendoza R.N. Medications Vitamins Oral. TraZODone HCl Oral, at bedtime, for sleep (tapering off, has been without for 2-3 nights ). --17:50 Po Mendoza R.N. Medication/allergy information source: the patient. --17:55 Po Mendoza R.N. Allergies Compazine. --17:50 Po Mendoza R.N. History Arrived by private vehicle, and accompanied by family. Primary physician (INGRIS QUINTANA). 17:47 12/05/16. ( Bleeding started Saturday, dark blood. On Saturday pt states at 1730 she "felt a greer of blood", this was dark blood. Pt developed red blood vag bleeding today. Pt states she is 6.5 weeks . Pt was recently seen here.). Treatment COOK CANDY: None. PAST MEDICAL HX: Immunizations: up-to-date. Last normal menstrual period- Oct 23, 2016, pt had miscarrige and DNC in August. Confirmed . In 1st trimester. SOCIAL HX: Never smoker. Alcohol use. History of heavy drug use: marijuana. Recently used drugs just prior to arrival. No infectious disease exposure. ABUSE ASSESSMENT: No report of abuse. FALL RISK ASSESSMENT: Fall risk assessment completed. No fall risk identified. NUTRITIONAL RISK ASSESSMENT: The nutritional risk assessment revealed no deficiencies. FUNCTIONAL ASSESSMENT: Functional assessment: no impairments noted. LEARNING NEEDS ASSESSMENT: The learning needs assessment revealed no barriers. SKIN INTEGRITY ASSESSMENT: Skin integrity risk assessment completed. No skin integrity risk identified. --17:55 Po Mendoza R.N. PROBLEMS: Threatened . Subchorionic Hemorrhage. Endometriosis. OB History. Vomiting. Spontaneous (Miscarriage). Care. Cyclical vomiting syndrome. Fibromyalgia. Endometritis. --17:50 Po Mendoza R.N. ADDITIONAL SURGERIES: Laparoscopy. Tonsillectomy. --17:50 Po Mendoza R.N. Assessment 17:47 12/05/16. --17:55 Po Mendoza R.N. Interventions 17:46 12/05/16. 17:47 12/05/16. ID and allergy band on patient. To treatment room. --17:55 Po Mendoza R.N. PHYSICAL ASSESSMENT 17:56 12/05/16. Ambulatory to room. GENERAL / NEURO / PSYCH: Alert. Oriented X 4. RESPIRATORY: Respirations not labored. CVS: Capillary refill less than 2 seconds. GI / : No abdominal tenderness. SKIN: Skin is warm and dry. --17:56 Po Mendoza R.N. NURSING PROGRESS NOTES 17:56 12/05/16. The plan of care for this patient has been created. Patient gowned. Head of bed elevated. Reassurance given. Two patient identifiers checked. Call light placed in reach. Side rails up x 2. Bed placed in lowest position. Brakes of bed on. Brakes of chair on. --17:56 Po Mendoza R.N. 17:56 12/05/16. Patient ready for evaluation- chart flagged and notification provided. --17:56 Po Mendoza R.N. 17:58 12/05/16. PELVIC EXAM: Pelvic exam performed by PANEL LAMINATOR. Assisted by two nurses. Preparation: pelvic tray. Procedure: speculum exam. Dark vaginal bleeding noted. Status post-procedure: she was stable. Total time of assist / procedure: 15 minutes. --17:58 Po Mendoza R.N. 18:15 12/05/16. Patient ID band checked for patient name and birthdate. Blood samples drawn from the right antecubital space with 23g by nurse per protocol ; labeled in presence of the patient and sent to lab: tj álvarez. --18:15 Po Mendoza R.N. 18:32 12/05/16. Patient informed about reason for wait and about plan of care. --18:32 Dulce Goff R.N. 18:37 12/05/16. --18:37 Po Mendoza R.N. 18:36 12/05/16. BP: 100/56. HR: 78. RR: 14. O2 saturation: 100% on room air. Temp: 98.1 F (oral). Pain level now: 02/06. --18:37 Po Mendoza R.N. 18:49 12/05/16. Patient informed about reason for wait and about plan of care. --18:49 Po Mendoza R.N. 19:09 12/05/16. Care transferred and report given. --19:09 Po Mendoza R.N. ( Report received from Po Mendoza RN). --19:15 Juan M Scott R.N. ( patient alert, calm, and oriented.). --19:23 Juan M Scott R.N. DISPOSITION / DISCHARGE Condition at departure: stable. No learning barriers present. Discharge instructions provided and reviewed with the patient. Reviewed referrals for followup. Activity restrictions reviewed (vaginal rest). Patient verbalized understanding. Written instructions provided in Khmer. The patient was discharged home and unaccompanied at time of discharge. She left the Emergency Department ambulatory and via private vehicle. Patient driving. --19:27 Juan M Scott R.N. Departure time: 19:27. ( DIscharge instructions provided to patient. no IV in place.). --19:27 Juan M Scott R.N. 19:21 12/05/16. BP: 120/85. HR: 77. RR: 18. O2 saturation: 97% on room air. Pain level now: 02/06. --19:29 Kirsten Ceja R.N. Locked/Released at 12/05/2016 19:32 by Juan M Scott R.N.
--- NOTE | 2016-12-06 02:36 | ED CLINICAL REPORT ---
Clinical Report - Physicians/Mid Levels [facility] [address] [place] [address] 12/05/2016 17:37 Patient: NELSON REYNOSO Time Seen: 17:45; upon arrival, initial patient contact, initial documentation, patient care assumed. Arrived- By private vehicle. Historian- patient. RETURN VISIT: recently seen in this ED by another ED physician. Seen now for the same problem as before. HISTORY OF PRESENT ILLNESS Chief Complaint: VAGINAL BLEEDING. This started about 1 weeks ago and still present. The symptoms are described as mild. The patient has had intermittent, crampy right-sided, suprapubic and left-sided pelvic pain, described as "pain", with vaginal bleeding. She has had lower back pain. 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 She is . No vaginal pain, flank pain, vaginal discharge, pain with urination or urinary frequency. No urgency of urination or hematuria. Sexually active. (pt has prenatals that she got and is taking them, has refills). Currently . In 1st trimester. confirmed with serum test. Has had no care. Recent sonogram showed intrauterine and incomplete . G 3. P 1. Ab 1. Not receiving care. Similar symptoms previously: None. Recent medical care: The patient was seen recently at this facility in the emergency department. ( pt txed here 12/01, dx with threatened miscarriage and vag bleed, went to on saturday for f/u for blood work, but they couldn't get it, so she doens't know if she is still or not). REVIEW OF SYSTEMS No vomiting, diarrhea, fever or chest pain. All systems otherwise negative, except as recorded above. PAST HISTORY See nurses notes. ( PROBLEMS: Threatened . Subchorionic Hemorrhage. Endometriosis. OB History. Vomiting. Spontaneous (Miscarriage). Care. Cyclical vomiting syndrome. Fibromyalgia. Endometritis. --17:50 Po Mendoza R.N. ADDITIONAL SURGERIES: Laparoscopy. Tonsillectomy. --17:50 Po Mendoza R.N.). SOCIAL HISTORY Never smoker. Occasional alcohol use. History of heavy drug use: marijuana. Recently used drugs yesterday. Is not under influence in ED. No recent travel. Is a local resident. FAMILY HISTORY Negative. ADDITIONAL NOTES The nursing notes have been reviewed with agreement regarding the chief complaint, HPI, ROS, PMH and patient medications and allergies. PHYSICAL EXAM Vital Signs: 12/05/2016 17:46 BP: 144/81. HR: 88. RR: 18. O2 saturation: 99%. Temp: 98 F. Pain level now: 5/10. Have been reviewed as normal and appear to be correct. Appearance: Alert. Oriented X3. No acute distress. HEENT: Normal external inspection. ENT: Pharynx normal. Neck: Neck supple. CVS: Heart sounds normal. Respiratory: No respiratory distress. Breath sounds normal. Chest nontender. Abdomen: Soft and nontender. No organomegaly. No mass. Back: Normal external inspection. : External inspection normal. Speculum exam abnormal. Slight vaginal bleeding, consisting of dark blood, via the cervical os. No vaginal bleeding from a cervical lesion or vaginal laceration. No vaginal discharge. Cervical os closed. No tissue present. No cervicitis. No herpes-like lesions. Bimanual exam normal. Skin: Skin warm and dry. Normal skin color. No rash. Normal skin turgor. Extremities: Extremities nontender. No lower extremity edema. Neuro: Oriented X 3. Mood/affect normal. No motor deficit. No sensory deficit. LABS, X-RAYS, AND EKG Laboratory Tests: CBC w Diff: (MATI: 12/05/2016 18:09) ( MsgRcvd 12/05/2016 18:21) Final results Test Result Flag Units (Reference) WHITE BLOOD COUNT 11.9 H K/uL (4.5-11.5) RED BLOOD COUNT 4.08 M/uL (4.00-5.20) HEMOGLOBIN 12.4 gm/dL (12.0-16.0) HEMATOCRIT 36.9 % (36.0-46.0) MEAN CELL VOLUME 91 fL (80-100) MEAN CORPUSCULAR HGB 30 pg (26-34) MEAN CORPUSCULAR HGB CONC 34 g/dL (31-37) RED CELL DISTRIBUTION WIDTH 13.6 % (11.6-14.8) PLATELET COUNT 315 K/uL (150-400) NEUTROPHIL % 59.0 % (50-75) LYMPH % 31.2 % (25-40) MONO % 6.8 % (3-14) EOSINOPHIL % 2.7 % (0-4) BASOPHIL % 0.3 % (0-2) BMP: (MATI: 12/05/2016 18:09) ( MsgRcvd 12/05/2016 18:57) Final results Test Result Flag Units (Reference) GLUCOSE 79 mg/dL (70-110) BUN 5 L mg/dL (7-18) CREATININE 0.6 mg/dL (0.6-1.3) Estimated GFR >60 mL/min Estimated GFR- >60 mL/min Note: Persistent reduction over 3 months in eGFR<60 mL/min/1.73 m2 defines CKD. Patients with eGFR values>=60 mL/min/1.73 m2 may also have CKD if evidence ofpersistent proteinuria. Additional information may be foundat www.kidney.org. SODIUM 141 mmol/L (136-145) POTASSIUM 3.5 mmol/L (3.5-5.1) CHLORIDE 104 mmol/L (98-107) CARBON DIOXIDE 26 mmol/L (21-32) CALCIUM 9.1 mg/dL (8.5-10.1) BETA HCG, QUANTITATIVE 89661 mIU/mL REFERENCE RANGE:Adult Males: <2 mIU/mLNon- Females: <6 mIU/mL Females:Approximate Approximate hCGGestational Age Range (mIU/mL) 0-1 week 0-501-2 weeks 40-3002-3 weeks 100-37418-3 weeks 500-62409-0 months 5,000-200,0002-3 months 10,000-100,0002nd trimester 3,000-50,0003rd trimester 1,000-50,000 . PROGRESS AND PROCEDURES Course of Care: 18:05 12/05/16. old er visit reviewed H&H - 12.7 & 38 Blood type A- quant 52786 wet mount unremarkable rhogam given Pelvic Sonogram: An intrauterine (gestational sac w/ yolk) is present. A small subchorionic hemorrhage is present. No cardiac activity visualized. An ovarian cyst is present. No free fluid. 18:52 12/05/16. pt has allen with guidelines for cyclic vomiting, no controlled substances, and some narcs, see report for full details. Patient counseled in person regarding the patient's stable condition, test results and diagnosis. 18:57. Differential Diagnosis: I considered vaginitis, vulvar infection, ovarian cysts, polycystic disease of the ovaries, pelvic inflammatory disease, endometriosis, uterine fibroids, intrauterine , incomplete , threatened , retained products of , endometritis, endometrial carcinoma, fibroids and dysfunctional uterine bleeding as a possible cause of vaginal bleeding in this patient. This is a partial list of diagnoses considered. Above considerations are based on history, physical exam, reassessment and laboratory data. Differential diagnosis was discussed with patient. Disposition: Discharged home in good and unchanged condition (19:05). Condition: good and stable. CLINICAL IMPRESSION Threatened ; positive test in emergency department. INSTRUCTIONS (Vagina rest, as discussed). Warnings: GENERAL WARNINGS: Return or contact your physician immediately if your condition worsens or changes unexpectedly, if not improving as expected, or if other problems arise. Specifically return if problem worsens. Understanding of the discharge instructions verbalized by patient. Follow-up with: Aristeo Jones MD, Obstetrics/Gynecology, , [facility], [address] [place] [address] Follow up in about two days even if well. Call for an appointment. Summary of care provided to patient. (Electronically signed by Desire Kulkarni A.R.N.P. 12/05/2016 21:27)
--- NOTE | 2016-12-06 02:36 | ED ORDER SUMMARY ---
..... Patient: NELSON SCOTT OrderSheet [facility] VisitID: [id number] [place] [address] 26y, F Registration Date/Time: 12/05/2016 ORDER SHEET Weight: 49.4 kg (stated) Allergies: Compazine GENERAL ORDERS: CBC w Diff Urgent (17:59 12/05/2016 HBivens A.R.N.P.) (Ack 18:00 KHoerner) (18:15 JBoardley R.N.) BMP Urgent (17:59 12/05/2016 HBivens A.R.N.P.) (Ack 18:00 KHoerner) (18:15 JBoardley R.N.) Serum Quantitative Urgent (17:59 12/05/2016 HBivens A.R.N.P.) (Ack 18:00 KHoerner) (18:15 JBoardley R.N.) Pelvic Exam Setup (17:59 12/05/2016 HBivens A.R.N.P.) (Ack 18:00 KHoerner) (18:01 KHoerner) MEDICATION ORDERS: IV FLUIDS: ORDER SHEET NOTES: [Electronically signed by Juan M Scott R.N. (19:32 12/05/2016)] [Electronically signed by Desire KulkarniR.N.PShikha (21:27 12/05/2016)] [Electronically locked/signed by Juan M Scott R.N. (19:32 12/05/2016)]
--- NOTE | 2016-12-06 02:36 | ED NURSING NOTES ---
Clinical Report - Nurses [facility] [address] [place] [address] 12/05/2016 17:37 Patient: NELSON SCOTT TRIAGE Triage time 17:46. Acuity: LEVEL 3. Chief Complaint: VAGINAL BLEEDING. 17:47 12/05/16. 17:46 12/05/16. Alert. No acute distress. --17:55 Po Mendoza R.N. 17:46 12/05/16. BP: 144/81. HR: 88. RR: 18. O2 saturation: 99% on room air. Temp: 98 F (oral). Pain level now: 5/10. --17:55 Po Mendoza R.N. Weight: 49.4 kg stated. Height/Length: 63 inches Per Patient. BMI: 19.3. --17:55 oP Mendoza R.N. Medications Vitamins Oral. TraZODone HCl Oral, at bedtime, for sleep (tapering off, has been without for 2-3 nights ). --17:50 Po Mendoza R.N. Medication/allergy information source: the patient. --17:55 Po Mendoza R.N. Allergies Compazine. --17:50 Po Mendoza R.N. History Arrived by private vehicle, and accompanied by family. Primary physician (INGRIS QUINTANA). 17:47 12/05/16. ( Bleeding started Saturday, dark blood. On Saturday pt states at 1730 she "felt a greer of blood", this was dark blood. Pt developed red blood vag bleeding today. Pt states she is 6.5 weeks . Pt was recently seen here.). 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 PAST MEDICAL HX: Immunizations: up-to-date. Last normal menstrual period- Oct 23, 2016, pt had miscarrige and DNC in August. Confirmed . In 1st trimester. SOCIAL HX: Never smoker. Alcohol use. History of heavy drug use: marijuana. Recently used drugs just prior to arrival. No infectious disease exposure. ABUSE ASSESSMENT: No report of abuse. FALL RISK ASSESSMENT: Fall risk assessment completed. No fall risk identified. NUTRITIONAL RISK ASSESSMENT: The nutritional risk assessment revealed no deficiencies. FUNCTIONAL ASSESSMENT: Functional assessment: no impairments noted. LEARNING NEEDS ASSESSMENT: The learning needs assessment revealed no barriers. SKIN INTEGRITY ASSESSMENT: Skin integrity risk assessment completed. No skin integrity risk identified. --17:55 Po Mendoza R.N. PROBLEMS: Threatened . Subchorionic Hemorrhage. Endometriosis. OB History. Vomiting. Spontaneous (Miscarriage). Care. Cyclical vomiting syndrome. Fibromyalgia. Endometritis. --17:50 Po Mendoza R.N. ADDITIONAL SURGERIES: Laparoscopy. Tonsillectomy. --17:50 Po Mendoza R.N. Assessment 17:47 12/05/16. --17:55 Po Mendoza R.N. Interventions 17:46 12/05/16. 17:47 12/05/16. ID and allergy band on patient. To treatment room. --17:55 Po Mendoza R.N. PHYSICAL ASSESSMENT 17:56 12/05/16. Ambulatory to room. GENERAL / NEURO / PSYCH: Alert. Oriented X 4. RESPIRATORY: Respirations not labored. CVS: Capillary refill less than 2 seconds. GI / : No abdominal tenderness. SKIN: Skin is warm and dry. --17:56 Po Mendoza R.N. NURSING PROGRESS NOTES 17:56 12/05/16. The plan of care for this patient has been created. Patient gowned. Head of bed elevated. Reassurance given. Two patient identifiers checked. Call light placed in reach. Side rails up x 2. Bed placed in lowest position. Brakes of bed on. Brakes of chair on. --17:56 Po Mendoza R.N. 17:56 12/05/16. Patient ready for evaluation- chart flagged and notification provided. --17:56 Po Mendoza R.N. 17:58 12/05/16. PELVIC EXAM: Pelvic exam performed by SUPERVISING FLOORPERSON. Assisted by two nurses. Preparation: pelvic tray. Procedure: speculum exam. Dark vaginal bleeding noted. Status post-procedure: she was stable. Total time of assist / procedure: 15 minutes. --17:58 Po Mendoza R.N. 18:15 12/05/16. Patient ID band checked for patient name and birthdate. Blood samples drawn from the right antecubital space with 23g by nurse per protocol ; labeled in presence of the patient and sent to lab: tj álvarez. --18:15 Po Mendoza R.N. 18:32 12/05/16. Patient informed about reason for wait and about plan of care. --18:32 Dulce Goff R.N. 18:37 12/05/16. --18:37 Po Mendoza R.N. 18:36 12/05/16. BP: 100/56. HR: 78. RR: 14. O2 saturation: 100% on room air. Temp: 98.1 F (oral). Pain level now: 02/06. --18:37 Po Mendoza R.N. 18:49 12/05/16. Patient informed about reason for wait and about plan of care. --18:49 Po Mendoza R.N. 19:09 12/05/16. Care transferred and report given. --19:09 Po Menodza R.N. ( Report received from Po Mendoza RN). --19:15 Juan M Scott R.N. ( patient alert, calm, and oriented.). --19:23 Juan M Scott R.N. DISPOSITION / DISCHARGE Condition at departure: stable. No learning barriers present. Discharge instructions provided and reviewed with the patient. Reviewed referrals for followup. Activity restrictions reviewed (vaginal rest). Patient verbalized understanding. Written instructions provided in Serbian. The patient was discharged home and unaccompanied at time of discharge. She left the Emergency Department ambulatory and via private vehicle. Patient driving. --19:27 Juan M Scott R.N. Departure time: 19:27. ( DIscharge instructions provided to patient. no IV in place.). --19:27 Juan M Scott R.N. 19:21 12/05/16. BP: 120/85. HR: 77. RR: 18. O2 saturation: 97% on room air. Pain level now: 02/06. --19:29 Kirsten Ceja R.N. Locked/Released at 12/05/2016 19:32 by Juan M Scott R.N.
--- NOTE | 2016-12-06 02:38 | ED MAR SUMMARY ---
..... Medication Administration Record [facility] [address] [place], [place] [id number] Patient: NELSON REYNOSO [place] Visit ID: [id number] 26y, F Weight: 49.4 kg Height/Length: 63 in BMI: 19.3 ALLERGIES: Compazine
--- NOTE | 2016-12-06 02:38 | ED MAR SUMMARY ---
..... Medication Administration Record [facility] [address] [place], [place] [id number] Patient: NELSON REYNOSO [place] Visit ID: [id number] 26y, F Weight: 49.4 kg Height/Length: 63 in BMI: 19.3 ALLERGIES: Compazine
--- NOTE | 2016-12-06 02:38 | ED DISCHARGE INSTRUCTIONS ---
Patient: NELSON REYNOSO General Instructions [facility] VisitID: [id number] [address] [place] [id number] 26y, F Registration Date/Time: 12/05/2016 INSTRUCTIONS (Vagina rest, as discussed). Warnings: GENERAL WARNINGS: Return or contact your physician immediately if your condition worsens or changes unexpectedly, if not improving as expected, or if other problems arise. Specifically return if problem worsens. Understanding of the discharge instructions verbalized by patient. Follow-up with: Aristeo Jones MD, Obstetrics/Gynecology, , [facility], [address] [place] [address] Follow up in about two days even if well. Call for an appointment. Summary of care provided to patient. ADDITIONAL INFORMATION Possible Miscarriage (Threatened ) During early (first three months), it is not uncommon to have a small amount of bleeding. This can be entirely normal. But heavy bleeding or severe cramping can be an early sign of miscarriage. A miscarriage means unexpected loss of your . In about half of patients with bleeding or cramping during early , these symptoms will stop and the will continue normally. However, half of the time a miscarriage will occur. A miscarriage may occur due to various causes. These include a problem with the babys chromosomes (genes that carry the information needed for life) or with fertilization or implantation that didnt happen correctly. In most cases no cause can be found. Be reassured that this is not the result of anything that you did wrong, and it will not interfere with your ability to become in the future. Home Care: To improve the chance of keeping this , you should do the following: Rest in bed until the pain and bleeding stop. Do not have sexual intercourse for the next 3 weeks. Use sanitary napkins instead of tampons. Do not douche. Follow-Up: Make an appointment with your doctor within the next week, or as directed by our staff. Note: If you had an ultrasound, it will be reviewed by a specialist. You will be notified of any new findings that may affect your care. Get Prompt Medical Attention if any of the following occur: Vaginal bleeding or pain for more than three days Heavy bleeding (soaking one new pad an hour over three hours) Fever of 100.4F (38C) or higher, or as directed by your healthcare provider Increasing lower abdominal pain Weakness, dizziness, or fainting Passage of anything that resembles tissue: pink or grayish membrane or solid material (save the tissue in a clean container and bring to the doctor) You have been given the following additional information: Possible Miscarriage (Threatened ) (Electronically signed by Desire Kulkarni A.R.N.P. 12/05/2016 21:27)
--- NOTE | 2016-12-06 02:38 | ED MED RECONCILIATION SUMMARY ---
Patient: NELSON REYNOSO Medication Reconciliation Report [facility] VisitID: [id number] [address] [place] [address] 26y, F Registration Date/Time: 12/05/2016 Weight: 49.4 kg Height/Length: 63 in. BMI: 19.3 ALLERGIES: Compazine The patient's Home Medications are listed below: THE FOLLOWING MEDICATIONS NEED TO BE RECONCILED: Vitamins Oral TraZODone HCl Oral, at bedtime, for sleep, tapering off, has been without for 2-3 nights The source(s) of the original Home Medication information: patient The following Medications were given to the patient in the Emergency Department: None. The following Medications were prescribed to the patient: None.
--- NOTE | 2016-12-06 02:38 | ED DISCHARGE INSTRUCTIONS ---
Patient: NELSON REYNOSO General Instructions [facility] VisitID: [id number] [address] [place] [id number] 26y, F Registration Date/Time: 12/05/2016 INSTRUCTIONS (Vagina rest, as discussed). Warnings: GENERAL WARNINGS: Return or contact your physician immediately if your condition worsens or changes unexpectedly, if not improving as expected, or if other problems arise. Specifically return if problem worsens. Understanding of the discharge instructions verbalized by patient. Follow-up with: Aristeo Jones MD, Obstetrics/Gynecology, , [facility], [address] [place] [address] Follow up in about two days even if well. Call for an appointment. Summary of care provided to patient. ADDITIONAL INFORMATION Possible Miscarriage (Threatened ) During early (first three months), it is not uncommon to have a small amount of bleeding. This can be entirely normal. But heavy bleeding or severe cramping can be an early sign of miscarriage. A miscarriage means unexpected loss of your . In about half of patients with bleeding or cramping during early , these symptoms will stop and the will continue normally. However, half of the time a miscarriage will occur. A miscarriage may occur due to various causes. These include a problem with the babys chromosomes (genes that carry the information needed for life) or with fertilization or implantation that didnt happen correctly. In most cases no cause can be found. Be reassured that this is not the result of anything that you did wrong, and it will not interfere with your ability to become in the future. Home Care: To improve the chance of keeping this , you should do the following: Rest in bed until the pain and bleeding stop. Do not have sexual intercourse for the next 3 weeks. Use sanitary napkins instead of tampons. Do not douche. Follow-Up: Make an appointment with your doctor within the next week, or as directed by our staff. Note: If you had an ultrasound, it will be reviewed by a specialist. You will be notified of any new findings that may affect your care. Get Prompt Medical Attention if any of the following occur: Vaginal bleeding or pain for more than three days Heavy bleeding (soaking one new pad an hour over three hours) Fever of 100.4F (38C) or higher, or as directed by your healthcare provider Increasing lower abdominal pain Weakness, dizziness, or fainting Passage of anything that resembles tissue: pink or grayish membrane or solid material (save the tissue in a clean container and bring to the doctor) You have been given the following additional information: Possible Miscarriage (Threatened ) (Electronically signed by Desire Kulkarni A.R.N.P. 12/05/2016 21:27)
--- NOTE | 2016-12-06 02:38 | ED MED RECONCILIATION SUMMARY ---
Patient: NELSON REYNOSO Medication Reconciliation Report [facility] VisitID: [id number] [address] [place] [address] 26y, F Registration Date/Time: 12/05/2016 Weight: 49.4 kg Height/Length: 63 in. BMI: 19.3 ALLERGIES: Compazine The patient's Home Medications are listed below: THE FOLLOWING MEDICATIONS NEED TO BE RECONCILED: Vitamins Oral TraZODone HCl Oral, at bedtime, for sleep, tapering off, has been without for 2-3 nights The source(s) of the original Home Medication information: patient The following Medications were given to the patient in the Emergency Department: None. The following Medications were prescribed to the patient: None.
== END 2016-12-05 19:27 | disposition home or self-care (01) ==
LOC: ED SRH 17:37
DX: O20.0 Threatened abortion (principal); Z3A.01 Less than 8 weeks gestation of pregnancy; Z32.01 Encounter for pregnancy test, result positive
CPT/HCPCS: 90047; 90197; 95059

== ENCOUNTER 2017-01-08 12:19 | Emergency (ER) | payer OTHER ==
--- NOTE | 2017-01-08 13:20 | ED ORDER SUMMARY ---
..... Patient: NELSON REYNOSO N OrderSheet [facility] VisitID: [id number] [address] [place] [address] 26y, F Registration Date/Time: 01/08/2017 ORDER SHEET Weight: 49.8 kg (stated) Allergies: Compazine GENERAL ORDERS: Culture, Strep Screen Urgent (12:46 01/08/2017 Ector BAINS) (Ack 12:47 Jesus) (13:00 Thomas Lewis) MEDICATION ORDERS: IV FLUIDS: ORDER SHEET NOTES: [Electronically signed by Liz Cardona R.N. (13:31 01/08/2017)] [Electronically signed by Desire KulkarniNShikhaPShikha (13:39 01/08/2017)] [Electronically locked/signed by Liz Cardona R.N. (13:31 01/08/2017)]
--- NOTE | 2017-01-08 13:20 | ED NURSING NOTES ---
Clinical Report - Nurses [facility] [address] [place] [address] 01/08/2017 12:20 Patient: NELSON REYNOSO TRIAGE Triage time 12:35. Acuity: LEVEL 4. Chief Complaint: SORE THROAT. 12:35 01/08/17. 12:35 01/08/17. Alert. No acute distress. SEPSIS SCREEN: Sepsis Screen. Negative (no infection suspected/documented). --12:40 Po Mendoza R.N. 12:35 01/08/17. BP: 116/63. HR: 82. RR: 18. O2 saturation: 100% on room air. Temp: 98.5 F (oral). Pain level now: 04/08. --12:40 Po Mendoza R.N. Weight: 49.8 kg stated. Height/Length: 63 inches Per Patient. BMI: 19.5. --12:35 Po Mendoza R.N. Medications Vitamins Oral. --12:40 Po Mendoza R.N. Amoxicillin Oral 875mg, two times a day. --12:40 Po Mendoza R.N. Medication/allergy information source: the patient. --12:40 Po Mendoza R.N. Allergies Compazine. --12:40 Po Mendoza R.N. History Arrived by private vehicle. Historian: patient. Primary physician (LILIAN). 12:35 01/08/17. ( Throat pain that started Saturday. This pain started to get worse on Saturday. Pt went to [facility] on Saturday was given an RX for abx. This pain started to get worse today and pain has spread from the left side of the throat to the right.). 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 PAST MEDICAL HX: Immunizations: up-to-date. Last normal menstrual period- 11 weeks . Currently . SOCIAL HX: Never smoker. History of drug use: marijuana. ("dabbing"). No alcohol use. No infectious disease exposure. ABUSE ASSESSMENT: No report of abuse. FALL RISK ASSESSMENT: Fall risk assessment completed. No fall risk identified. NUTRITIONAL RISK ASSESSMENT: The nutritional risk assessment revealed no deficiencies. FUNCTIONAL ASSESSMENT: Functional assessment: no impairments noted. LEARNING NEEDS ASSESSMENT: The learning needs assessment revealed no barriers. SKIN INTEGRITY ASSESSMENT: Skin integrity risk assessment completed. No skin integrity risk identified. --12:40 Po Mendoza R.N. PROBLEMS: Threatened . Subchorionic Hemorrhage. Endometriosis. OB History. Vomiting. Spontaneous (Miscarriage). Cyclical vomiting syndrome. Fibromyalgia. Endometritis. --12:41 Po Mendoza R.N. ADDITIONAL SURGERIES: Laparoscopy. Tonsillectomy. --12:41 Po Mendoza R.N. Assessment 12:35 01/08/17. --12:40 Po Mendoza R.N. Interventions 12:35 01/08/17. 12:35 01/08/17. ID and allergy band on patient. To treatment room. --12:40 Po Mendoza R.N. PHYSICAL ASSESSMENT 12:37 01/08/17. Ambulatory to room. GENERAL / NEURO / PSYCH: Alert. Oriented X 4. Appears in no acute distress. CVS: Capillary refill less than 2 seconds. SKIN: Skin is warm and dry. --12:37 Po Mendoza R.N. NURSING PROGRESS NOTES 12:37 01/08/17. The plan of care for this patient has been created. Patient gowned. Head of bed elevated. Reassurance given. Two patient identifiers checked. Call light placed in reach. Side rails up x 2. Brakes of bed on. --12:37 Po Mendoza R.N. 12:37 01/08/17. Patient ready for evaluation- chart flagged and notification provided. --12:37 Po Mendoza R.N. 13:01/08/17. Patient ID band checked for patient name and birthdate: patient confirmed. Throat swab obtained for rapid strep; labeled in the presence of the patient and sent to lab. --13:01 Po Mendoza R.N. DISPOSITION / DISCHARGE 13:28. Condition at departure: unchanged. No learning barriers present. Discharge instructions provided and reviewed with the patient. Work note given. Patient verbalized understanding. Written instructions provided in Montenegrin. The patient was discharged home. She left the Emergency Department ambulatory and via private vehicle. Patient driving. Medication list reviewed and validated. --13:30 Liz Cardona R.N. 12:35 01/08/17. BP: 116/63. HR: 82. RR: 18. O2 saturation: 100% on room air. Temp: 98.5 F (oral). Pain level now: 04/08. --13:30 Liz Cardona R.N. Locked/Released at 01/08/2017 13:31 by Liz Cardona R.N.
--- NOTE | 2017-01-08 13:20 | ED CLINICAL REPORT ---
Clinical Report - Physicians/Mid Levels [facility] [address] [place] [address] 01/08/2017 12:20 Patient: NELSON REYNOSO Time Seen: 13:08; initial patient contact, initial documentation, patient care assumed. Arrived- By private vehicle. Historian- patient. HISTORY OF PRESENT ILLNESS Chief Complaint: SORE THROAT. This started about 5 days ago and is still present. Pain described as moderate. The patient has had a sore throat. No mouth sores, nasal discharge or congestion, ear pain or toothache. Similar symptoms previously: None. Recent medical care: The patient was seen recently in a clinic. ( went to clinic yesterday for st, given abx, amoxicillin, rapid strep done, it was neg, cx sent off, no results back yet, throat feels worse, pain spreading to both sides now). REVIEW OF SYSTEMS No fever, cough or difficulty breathing. Currently : 11wks. All systems otherwise negative, except as recorded above. PAST HISTORY See nurses notes. PROBLEMS: Threatened . Subchorionic Hemorrhage. Endometriosis. OB History. Vomiting. Spontaneous (Miscarriage). Cyclical vomiting syndrome. Fibromyalgia. Endometritis. --12:41 Po Mendoza R.N. ADDITIONAL SURGERIES: Laparoscopy. Tonsillectomy. --12:41 Po Mendoza R.N. SOCIAL HISTORY Never smoker. History of occasional drug use: marijuana. No alcohol use. No recent travel. Is a local resident. FAMILY HISTORY Negative. ADDITIONAL NOTES The nursing notes have been reviewed with agreement regarding the chief complaint, HPI, ROS, PMH and patient medications and allergies. PHYSICAL EXAM Vital Signs: 01/08/2017 12:35 BP: 116/63. HR: 82. RR: 18. O2 saturation: 100%. Temp: 98.5 F. Pain level now: 7/10. Have been reviewed as normal and appear to be correct. Appearance: Alert. No acute distress. Head: Normal external inspection. Eyes: Pupils equal, round and reactive to light. Conjunctivae and eyelids normal. ENT: Ears normal. Nose normal. Pharynx abnormal. Mild generalized pharyngeal erythema. No right tonsillar exudate, right tonsillar abscess, right tonsillar swelling, right peritonsillitis, left tonsillar exudate, left tonsillar abscess, left tonsillar swelling or left peritonsillitis. Lips normal. Gums normal. No trismus present. Uvula midline. Neck: Lymphadenopathy. Normal inspection. Mild right anterior neck and mild left anterior neck lymphadenopathy present. Trachea midline. Thyroid normal. Neck supple. Respiratory: No respiratory distress. Skin: Normal skin color. No rash. Normal skin turgor. Extremities: Extremities exhibit normal ROM. Extremities nontender. Neuro: Oriented X 3. No motor deficit. No sensory deficit. PROGRESS AND PROCEDURES Course of Care: pt has allen report with recommendations if pt comes with cyclic vomiting issues, no controlled substances, list of narcs and #5 er visits, see report for full details. Patient counseled in person regarding the patient's stable condition and diagnosis. 13:20. Differential Diagnosis: Other possible considerations: pharyngitis - bacterial vs viral, mono, herpes. Above considerations are based on history and physical exam. Differential diagnosis was discussed with patient. Disposition: Discharged home in good and unchanged condition (13:20). Condition: good and stable. CLINICAL IMPRESSION Acute streptococcal pharyngitis INSTRUCTIONS Do not work today, tomorrow. (continue with antibiotics as directed and discussed). Warnings: GENERAL WARNINGS: Return or contact your physician immediately if your condition worsens or changes unexpectedly, if not improving as expected, or if other problems arise. Specifically return if problem worsens. Follow-up: Follow up with your doctor in about three days even if well. Call for an appointment. Summary of care provided to patient. Understanding of the discharge instructions verbalized by patient. (Electronically signed by Desire Kulkarni A.R.N.P. 01/08/2017 13:39)
--- NOTE | 2017-01-08 13:20 | ED NURSING NOTES ---
Clinical Report - Nurses [facility] [address] [place] [address] 01/08/2017 12:20 Patient: NELSON REYNOSO TRIAGE Triage time 12:35. Acuity: LEVEL 4. Chief Complaint: SORE THROAT. 12:35 01/08/17. 12:35 01/08/17. Alert. No acute distress. SEPSIS SCREEN: Sepsis Screen. Negative (no infection suspected/documented). --12:40 Po Mendoza R.N. 12:35 01/08/17. BP: 116/63. HR: 82. RR: 18. O2 saturation: 100% on room air. Temp: 98.5 F (oral). Pain level now: 04/08. --12:40 Po Mendoza R.N. Weight: 49.8 kg stated. Height/Length: 63 inches Per Patient. BMI: 19.5. --12:35 Po Mendoza R.N. Medications Vitamins Oral. --12:40 Po Mendoza R.N. Amoxicillin Oral 875mg, two times a day. --12:40 Po Mendoza R.N. Medication/allergy information source: the patient. --12:40 Po Mendoza R.N. Allergies Compazine. --12:40 Po Mendoza R.N. History Arrived by private vehicle. Historian: patient. Primary physician (LILIAN). 12:35 01/08/17. ( Throat pain that started Saturday. This pain started to get worse on Saturday. Pt went to [facility] on Saturday was given an RX for abx. This pain started to get worse today and pain has spread from the left side of the throat to the right.). 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 PAST MEDICAL HX: Immunizations: up-to-date. Last normal menstrual period- 11 weeks . Currently . SOCIAL HX: Never smoker. History of drug use: marijuana. ("dabbing"). No alcohol use. No infectious disease exposure. ABUSE ASSESSMENT: No report of abuse. FALL RISK ASSESSMENT: Fall risk assessment completed. No fall risk identified. NUTRITIONAL RISK ASSESSMENT: The nutritional risk assessment revealed no deficiencies. FUNCTIONAL ASSESSMENT: Functional assessment: no impairments noted. LEARNING NEEDS ASSESSMENT: The learning needs assessment revealed no barriers. SKIN INTEGRITY ASSESSMENT: Skin integrity risk assessment completed. No skin integrity risk identified. --12:40 Po Mendoza R.N. PROBLEMS: Threatened . Subchorionic Hemorrhage. Endometriosis. OB History. Vomiting. Spontaneous (Miscarriage). Cyclical vomiting syndrome. Fibromyalgia. Endometritis. --12:41 Po Mendoza R.N. ADDITIONAL SURGERIES: Laparoscopy. Tonsillectomy. --12:41 Po Mendoza R.N. Assessment 12:35 01/08/17. --12:40 Po Mendoza R.N. Interventions 12:35 01/08/17. 12:35 01/08/17. ID and allergy band on patient. To treatment room. --12:40 Po Mendoza R.N. PHYSICAL ASSESSMENT 12:37 01/08/17. Ambulatory to room. GENERAL / NEURO / PSYCH: Alert. Oriented X 4. Appears in no acute distress. CVS: Capillary refill less than 2 seconds. SKIN: Skin is warm and dry. --12:37 Po Mendoza R.N. NURSING PROGRESS NOTES 12:37 01/08/17. The plan of care for this patient has been created. Patient gowned. Head of bed elevated. Reassurance given. Two patient identifiers checked. Call light placed in reach. Side rails up x 2. Brakes of bed on. --12:37 Po Mendoza R.N. 12:37 01/08/17. Patient ready for evaluation- chart flagged and notification provided. --12:37 Po Mendoza R.N. 13:01/08/17. Patient ID band checked for patient name and birthdate: patient confirmed. Throat swab obtained for rapid strep; labeled in the presence of the patient and sent to lab. --13:01 Po Mendoza R.N. DISPOSITION / DISCHARGE 13:28. Condition at departure: unchanged. No learning barriers present. Discharge instructions provided and reviewed with the patient. Work note given. Patient verbalized understanding. Written instructions provided in Bangladeshi. The patient was discharged home. She left the Emergency Department ambulatory and via private vehicle. Patient driving. Medication list reviewed and validated. --13:30 Liz Cardona R.N. 12:35 01/08/17. BP: 116/63. HR: 82. RR: 18. O2 saturation: 100% on room air. Temp: 98.5 F (oral). Pain level now: 04/08. --13:30 Liz Cardona R.N. Locked/Released at 01/08/2017 13:31 by iLz Cardona R.N.
--- NOTE | 2017-01-08 13:20 | ED ORDER SUMMARY ---
..... Patient: NELSON REYNOSO N OrderSheet [facility] VisitID: [id number] [address] [place] [address] 26y, F Registration Date/Time: 01/08/2017 ORDER SHEET Weight: 49.8 kg (stated) Allergies: Compazine GENERAL ORDERS: Culture, Strep Screen Urgent (12:46 01/08/2017 Ector BAINS) (Ack 12:47 Jesus) (13:00 Thomas Lewis) MEDICATION ORDERS: IV FLUIDS: ORDER SHEET NOTES: [Electronically signed by Liz Cardona R.N. (13:31 01/08/2017)] [Electronically signed by Desire KulkarniNShikhaPShikha (13:39 01/08/2017)] [Electronically locked/signed by Liz Cardona R.N. (13:31 01/08/2017)]
--- NOTE | 2017-01-08 13:40 | ED DISCHARGE INSTRUCTIONS ---
Patient: NELSON REYNOSO General Instructions [facility] VisitID: [id number] [place] [address] 26y, F Registration Date/Time: 01/08/2017 Acute streptococcal pharyngitis INSTRUCTIONS Do not work today, tomorrow. (continue with antibiotics as directed and discussed). Warnings: GENERAL WARNINGS: Return or contact your physician immediately if your condition worsens or changes unexpectedly, if not improving as expected, or if other problems arise. Specifically return if problem worsens. Follow-up: Follow up with your doctor in about three days even if well. Call for an appointment. Summary of care provided to patient. Understanding of the discharge instructions verbalized by patient. ADDITIONAL INFORMATION Pharyngitis: Strep [Presumed] Your illness has the signs of a strep throat infection. Strep throat is a contagious illness. It is spread by coughing, kissing or by touching others after touching your mouth or nose. Symptoms include throat pain worse with swallowing, aching all over, headache and fever. You will be treated with an antibiotic, which should make you start to feel better within 1-2 days. Home Care: Rest at home and drink plenty of fluids to avoid dehydration. No school or work for the first two days on antibiotics. You will not be contagious after this time, and if you are feeling better, you can return to school or work. Take your antibiotics for a full 10 days, even if you feel better after the first few days of treatment. This is very important to prevent complications from the strep infection (such as heart or kidney disease). Children: Use acetaminophen (Tylenol) for fever, fussiness or discomfort. In infants over six months of age, you may use ibuprofen (Children's Motrin) instead of Tylenol. [NOTE: If your child has chronic liver or kidney disease or ever had a stomach ulcer or GI bleeding, talk with your doctor before using these medicines.] (Aspirin should never be used in anyone under 18 years of age who is ill with a fever. It may cause severe liver damage.) Adults: You may use acetaminophen (Tylenol) or ibuprofen (Motrin, Advil) to control pain or fever, unless another medicine was prescribed for this. [NOTE: If you have chronic liver or kidney disease or ever had a stomach ulcer or GI bleeding, talk with your doctor before using these medicines.] Throat lozenges or sprays (Chloraseptic and others) will reduce pain. Gargling with warm salt water will also reduce throat pain. Dissolve 1/2 teaspoon of salt in 1 glass of warm water. This is especially useful just before meals. Follow Up with your doctor or as directed by our staff if you are not improving over the next week. Get Prompt Medical Attention if any of the following occur: Fever over 100.5F (38.0C) oral, or over 101.5F (38.6C) rectal for more than three days New or worsening ear pain, sinus pain or headache Painful lumps in the back of your neck Unable to swallow liquids or open your mouth wide due to throat pain Trouble breathing or noisy breathing Muffled voice New rash You have been given the following additional information: Pharyngitis, Strep (Presumed) Do not work today, tomorrow. (Electronically signed by Desire Kulkarni A.R.N.P. 01/08/2017 13:39)
--- NOTE | 2017-01-08 13:40 | ED MAR SUMMARY ---
..... Medication Administration Record [facility] [address] [place] [id number] Patient: NELSON REYNOSO [place] Visit ID: [id number] 26y, F Weight: 49.8 kg Height/Length: 63 in BMI: 19.5 ALLERGIES: Compazine
--- NOTE | 2017-01-08 13:40 | ED MED RECONCILIATION SUMMARY ---
Patient: NELSON REYNOSO Medication Reconciliation Report [facility] VisitID: [id number] [address] [place] [address] 26y, F Registration Date/Time: 01/08/2017 Weight: 49.8 kg Height/Length: 63 in. BMI: 19.5 ALLERGIES: Compazine The patient's Home Medications are listed below: THE FOLLOWING MEDICATIONS NEED TO BE RECONCILED: Amoxicillin Oral 875mg, two times a day Vitamins Oral The source(s) of the original Home Medication information: patient The following Medications were given to the patient in the Emergency Department: None. The following Medications were prescribed to the patient: None.
--- NOTE | 2017-01-08 13:40 | ED MAR SUMMARY ---
..... Medication Administration Record [facility] [address] [place], [place] [id number] Patient: NELSON REYNOSO [place] Visit ID: [id number] 26y, F Weight: 49.8 kg Height/Length: 63 in BMI: 19.5 ALLERGIES: Compazine
--- NOTE | 2017-01-08 13:40 | ED MED RECONCILIATION SUMMARY ---
Patient: NELSON REYNOSO Medication Reconciliation Report [facility] VisitID: [id number] [address] [place] [address] 26y, F Registration Date/Time: 01/08/2017 Weight: 49.8 kg Height/Length: 63 in. BMI: 19.5 ALLERGIES: Compazine The patient's Home Medications are listed below: THE FOLLOWING MEDICATIONS NEED TO BE RECONCILED: Amoxicillin Oral 875mg, two times a day Vitamins Oral The source(s) of the original Home Medication information: patient The following Medications were given to the patient in the Emergency Department: None. The following Medications were prescribed to the patient: None.
== END 2017-01-08 13:28 | disposition home or self-care (01) ==
LOC: ED SRH 12:19
DX: J02.0 Streptococcal pharyngitis (principal); M79.7 Fibromyalgia; Z88.8 Allergy status to other drugs, medicaments and biological substances
CPT/HCPCS: 90154

== ENCOUNTER 2017-01-27 20:01 | Observation (INO) | payer OTHER ==
[~2017-01-27] VITALS: Ht 160 cm; Wt 50.0 kg
--- NOTE | 2017-01-27 22:22 | ED CLINICAL REPORT ---
Clinical Report - Physicians/Mid Levels [facility] [address] [place] [address] 01/27/2017 20:01 Patient: NELSON REYNOSO Time Seen: 20:07; initial patient contact, initial documentation, patient care assumed. Arrived- By ambulance. Historian- patient. HISTORY OF PRESENT ILLNESS Chief Complaint: VOMITING. This started about 1 weeks ago and is still present. No recent travel. She has had nausea, vomiting and abdominal pain. No diarrhea, black stools, bloody stools, constipation or flank pain. No history of possible bad food exposure, known contact with a sick individual or change in routine. Has not recently been camping or on antibiotics. The illness is described as severe. Similar symptoms previously: Chronically, as bad. Recent medical care: The patient was seen recently at this facility in the emergency department. ( txed here about x2 weeks ago for sore throat). REVIEW OF SYSTEMS No fever, muscle aches, difficulty with urination, dark urine or abnormal bleeding. No chest pain or difficulty breathing. Currently : was with twins and lost them In 2nd trimester. confirmed with sonogram. Recent sonogram showed intrauterine . G 3. P 1. Ab 2. c/o orange vag dc. All systems otherwise negative, except as recorded above. PAST HISTORY See nurses notes. PROBLEMS: Threatened . Subchorionic Hemorrhage. Endometriosis. OB History. Spontaneous (Miscarriage). Cyclical vomiting syndrome. Fibromyalgia. Endometritis. --20:13 Alexx Beard RShikhaN. ADDITIONAL SURGERIES: Laparoscopy. Tonsillectomy. --20:13 Alexx Beard RViv. SOCIAL HISTORY Former smoker. Occasional alcohol use. History of heavy drug use: marijuana. No recent travel. Is a local resident. FAMILY HISTORY Negative. ADDITIONAL NOTES The nursing notes have been reviewed with agreement regarding the chief complaint, HPI, ROS, PMH and patient medications and allergies. PHYSICAL EXAM Vital Signs: 01/27/2017 20:05 BP: 121/66. HR: 74. RR: 17. O2 saturation: 97%. Temp: 98 F. Pain level now: 10/10. Have been reviewed as normal and appear to be correct. Appearance: Alert. Oriented X3. No acute distress. (unkept appearance, pt went to sink in room during exam and drank water straight from faucet, instructed not to do that because it would make her vomit more). Eyes: Pupils equal, round and reactive to light. Eyes normal inspection. Neck: Normal inspection. Neck supple. CVS: Normal heart rate and rhythm. Heart sounds normal. Pulses normal. Respiratory: No respiratory distress. Breath sounds normal. Abdomen: Soft. Bowel sounds normal. No organomegaly. No mass. Tenderness present. (pt will not let me palpate her abd, pulled my hand away and asked me not to touch her). Back: Normal inspection. : Normal external exam. Speculum exam normal. Bimanual exam normal. Skin: Skin warm and dry. Slight pallor. Abnormal skin color. No rash. Normal skin turgor. Extremities: Extremities exhibit normal ROM. No lower extremity edema. Neuro: Oriented X 3. No motor deficit. No sensory deficit. LABS, X-RAYS, AND EKG Abdominal Sonogram: (FINDINGS: There is no evidence of a right lower quadrant distended noncompressible viscus. There is a loop of bowel which may represent the appendix measuring 2.7 mm. There is no right lower quadrant mesenteric adenitis. Normal gallbladder and right kidney without hydronephrosis. No evidence of free fluid. Per U/S tech, viable IUP HR at 165. IMPRESSION: 1. No ultrasound evidence of acute appendicitis.). Interpretation time: 23:40. Laboratory Tests: UA-Culture if indicated: (MATI: 01/27/2017 20:50) ( MsgRcvd 01/27/2017 21:22) Final results Test Result Flag Units (Reference) URINE COLOR YELLOW URINE APPEARANCE CLEAR URINE GLUCOSE NEGATIVE (NEGATIVE) URINE BILIRUBIN NEGATIVE (NEGATIVE) URINE KETONE 3+ (NEGATIVE) URINE SPECIFIC GRAVITY >= 1.030 (1.010-1.030) URINE PH 6.0 (5.0-8.0) URINE PROTEIN 2+ (NEGATIVE) URINE UROBILINOGEN 0.2 EU/dL (0.2-1.0) URINE NITRITE NEGATIVE (NEGATIVE) URINE BLOOD NEGATIVE (NEGATIVE) URINE LEUK ESTERASE NEGATIVE (NEGATIVE) URINE RBC NONE SEEN rbc/hpf (0-1) URINE WBC 3-5 wbc/hpf (0-1) URINE EPITHELIAL CELLS 5-10 EPI/hpf (0-5) URINE BACTERIA NONE SEEN (NONE SEEN) URINE COMMENT CULT NOT INDICATED 2+ MUCUSURINE CULTURES ARE SET-UP BASED ON THE FOLLOWING CRITERIA:POSITIVE NITRITEPOSITIVE LEUKOCYTE ESTERASEGREATER THAN 10 WHITE BLOOD CELLSMODERATE (2+) OR GREATER BACTERIA CBC w Diff: (MATI: 01/27/2017 20:40) ( [facility] 01/27/2017 21:13) Final results Test Result Flag Units (Reference) WHITE BLOOD COUNT 23.4 H K/uL (4.5-11.5) RED BLOOD COUNT 4.31 M/uL (4.00-5.20) HEMOGLOBIN 13.0 gm/dL (12.0-16.0) HEMATOCRIT 39.7 % (36.0-46.0) MEAN CELL VOLUME 92 fL (80-100) MEAN CORPUSCULAR HGB 30 pg (26-34) MEAN CORPUSCULAR HGB CONC 33 g/dL (31-37) RED CELL DISTRIBUTION WIDTH 13.0 % (11.6-14.8) PLATELET COUNT 293 K/uL (150-400) NEUTROPHIL % 90.2 H % (50-75) LYMPH % 6.8 L % (25-40) MONO % 3.0 % (3-14) EOSINOPHIL % 0 % (0-4) BASOPHIL % 0 % (0-2) Urine Drug Screen: (MATI: 01/27/2017 20:50) ( [facility] 01/27/2017 21:36) Final results Test Result Flag Units (Reference) AMPHETAMINE/METHAMPHETAMINE NEGATIVE (NEGATIVE) BARBITURATE NEGATIVE (NEGATIVE) BENZODIAZEPINE NEGATIVE (NEGATIVE) CANNABINOID POSITIVE H (NEGATIVE) COCAINE NEGATIVE (NEGATIVE) ECSTASY NEGATIVE (NEGATIVE) METHADONE NEGATIVE (NEGATIVE) OPIATE NEGATIVE (NEGATIVE) The urine drug screen is a qualitative screening test fordrug overdose and abuse. All screen results should beconsidered as presumptive.Drugs screened for are as follows:BenzodiazepinesCocaineAmphetamines/MetamphetaminesTHC (Tetrahydrocannabinol)OpiatesBarbituratesEcstasyMethadonePositive results are unconfirmed. For confirmation, notifythe lab for the specimen to be sent to the reference lab.All confirmations must be performed by a differentmethodology.The ingestion of natural herbal and plant productscontaining Ephedra/Ephedra metabolites can produce in urineone or more substances capable of cross reacting withamphetamine/methamphetamine immunoassays. These testsprovide a preliminary result only. A more specificalternative chemical method must be used to obtain aconfirmed analytical result. CMP: (MATI: 01/27/2017 20:40) ( MsgRcvd 01/27/2017 21:39) Final results Test Result Flag Units (Reference) GLUCOSE 182 H mg/dL (70-110) BUN 17 mg/dL (7-18) CREATININE 0.7 mg/dL (0.6-1.3) Estimated GFR >60 mL/min Estimated GFR- >60 mL/min Note: Persistent reduction over 3 months in eGFR<60 mL/min/1.73 m2 defines CKD. Patients with eGFR values>=60 mL/min/1.73 m2 may also have CKD if evidence ofpersistent proteinuria. Additional information may be foundat www.kidney.org. SODIUM 142 mmol/L (136-145) POTASSIUM 3.6 mmol/L (3.5-5.1) CHLORIDE 103 mmol/L (98-107) CARBON DIOXIDE 20 L mmol/L (21-32) CALCIUM 8.9 mg/dL (8.5-10.1) TOTAL PROTEIN 8.5 H g/dL (6.4-8.2) ALBUMIN 4.3 g/dL (3.3-5.0) BILIRUBIN, TOTAL 0.7 mg/dL (0.0-1.0) ALKALINE PHOSPHATASE 52 U/L (46-116) AST (SGOT) 18 U/L (15-37) ALT (SGPT) 18 U/L (12-78) BETA HCG, QUANTITATIVE 05245 mIU/mL REFERENCE RANGE:Adult Males: <2 mIU/mLNon- Females: <6 mIU/mL Females:Approximate Approximate hCGGestational Age Range (mIU/mL) 0-1 week 0-501-2 weeks 40-3002-3 weeks 100-54140-0 weeks 500-16316-9 months 5,000-200,0002-3 months 10,000-100,0002nd trimester 3,000-50,0003rd trimester 1,000-50,000 . PROGRESS AND PROCEDURES Course of Care: pt has allen for recommendations for cyclic vomiting syndrome, no opiods or controlled substances should be given, frequent narcs and #6 er visits, see report for full details. pt continuing to drink water straight from sink faucet, asking for anxiety/sleep meds, wants to go upstairs to take shower at bedside for pelvic exam, exam normal, abd does not appear , no uterus, pt again went to sink for water, instructed again to stop drinking, pt then stated she was only rinsing her mouth out, pt then vomited the water, but no pill fragments seen, and pt telling me she was puking because the tylenol upset her stomach 21:03 01/27/17. having discussion with nurses chavo and siddharth, was pt truly vomiting or holding water in her mouth and spitting it back out to appear to be vomiting 21:05 01/27/17. 12/05/16 lab results BETA HCG, QUANTITATIVE [id number] 21:22 01/27/17. pt updated with elevated wbc count and possible admit having towel sewer inform warehouse operations manager that admit is mostly likely going to happen 22:27 01/27/17. report given to Dr Owens who will assist with getting pt admitted and update Dr Restrepo as needed. 01/27/2017 21:34 BP: 96/49. HR: 89. RR: 16. O2 saturation: 99%. Vital Signs: have been reviewed as abnormal and appear to be correct. Hypotensive. Heart rate normal. Respiratory rate normal. Temperature normal. Oxygen saturation normal. Discussed case with on-call health care provider, (call returned [phone] Dr Dixon thinks admit to ob best since 14 wks , I agreed, and he would consult). Reviewed test results. Agreed upon treatment plan and decision to admit. Discussed case with on-call health care provider, (call returned [phone] , asked for Pelvic U/S.). Call placed to on-call health care provider call returned [phone] Dr Restrepo case discussed, pt will be admitted after rest of labs and us done, asked that we call her back with these results. Differential Diagnosis: I considered gastritis, peptic ulcer disease, ischemia, gastroesophageal reflux disease, gastroparesis, Crohn's disease, ulcerative colitis, small bowel obstruction, gastric outlet obstruction, colonic obstruction, colon cancer, gastroenteritis, cholecystitis, pancreatitis, viral syndrome, enterocolitis, urinary tract infection, hepatitis, sepsis, drugs, and psychogenic etiology as a possible cause of vomiting in this patient. This is a partial list of diagnoses considered. Above considerations are based on history, physical exam, reassessment and laboratory data. Differential diagnosis was discussed with patient. Disposition: Admitted to Acute Care. 22:22. CLINICAL IMPRESSION Vomiting with nausea. Leukocytopenia. (Electronically signed by Jann Owens Dr. 01/28/2017 2:45)
--- NOTE | 2017-01-27 22:23 | ED ORDER SUMMARY ---
..... Patient: NELOSN REYNOSO OrderSheet [facility] VisitID: [id number] [place] [address] 26y, F Registration Date/Time: 01/27/2017 ORDER SHEET Weight: 49.8 kg (stated) Allergies: Compazine GENERAL ORDERS: CBC w Diff Urgent (20:16 01/27/2017 HBivens A.R.N.P.) (Ack 20:26 CHagerty ER [employer]visor [employer]) (20:42 CHagerty [employer]) CMP Urgent (20:16 01/27/2017 HBivens A.R.N.P.) (Ack 20:26 CHagerty [employer]) (20:42 CHagerty ER [employer]) UA-Culture if indicated Urgent (20:16 01/27/2017 HBivens A.R.N.P.) (Ack 20:26 [employer]agerty [employer]) (20:49 JQuivey R.N.) Serum Quantitative Urgent (20:16 01/27/2017 HBivens A.R.N.P.) (Ack 20:26 CHagerty [employer]) (20:42 CHagerty [employer]) Urine Drug Screen Urgent (20:16 01/27/2017 HBivens A.R.N.P.) (Ack 20:26 CHagerty [employer]) (20:49 JQuivey R.N.) Pelvic Exam Setup (20:16 01/27/2017 HBivens A.R.N.P.) (21:07 JQuivey R.N.) US Abdomen Complete (No) Urgent (21:50 01/27/2017 HBivens A.R.N.P.) (Ack 21:52 CHagerty [employer]) (22:21 HBivens A.R.N.P.) (Cancelled: Other22:21 HBivens A.R.N.P.) Lactate, Serum Urgent (22:18 01/27/2017 HBivens A.R.N.P.) (Ack 22:20 CHagerty [employer]) (23:22 CHagerty [employer]) TSH Urgent (22:18 01/27/2017 HBivens A.R.N.P.) (Ack 22:20 CHagerty [employer]) (23:22 CHagerty [employer]) PCT (Procalcitonin) Urgent (22:18 01/27/2017 HBivens A.R.N.P.) (Ack 22:20 CHagerty [employer]) (23:22 CHagerty [employer]) US Abdomen Complete (No) (look at appendix) Urgent (22:21 01/27/2017 HBivens A.R.N.P.) (Ack 22:23 CHagerty [employer]) (23:19 JDeElena R.N.) MEDICATION ORDERS: Tylenol PO 1,000 mg (NOW) (20:49 01/27/2017 JQuivey R.N. verbal order read back to HBivens A.R.N.P.) (20:49 JQuivey R.N.) Phenergan IV 25 mg (HIGH ALERT MEDICATION, NOW) (21:32 01/27/2017 HBivens A.R.N.P.) (Ack 21:38 JQuivey R.N.) (21:42 JQuivey R.N.) IV FLUIDS: IV NS : initial bolus 1000 mL (1000 mL/hr), then none - for X2 (NOW) (20:15 01/27/2017 HBivens A.R.N.P.) (20:22 JQuivey R.N.) Zofran IV 4 mg (NOW) (20:15 01/27/2017 HBivens A.R.N.P.) (20:25 JQuivey R.N.) IV Saline Lock (20:16 01/27/2017 HBivens A.R.N.P.) (20:22 JQuivey R.N.) Reglan IV 10 mg (NOW) (20:24 01/27/2017 HBivens A.R.N.P.) (20:39 JQuivey R.N.) Zofran IV 4 mg (NOW) (00:12 01/28/2017 Em Dahl) (0:30 JQuivey R.N.) ORDER SHEET NOTES: [Electronically signed by Alexx Beard R.N. (01:02 01/28/2017)] [Electronically signed by Jann Owens Dr. (02:45 01/28/2017)] [Electronically locked/signed by Alexx Beard R.N. (:02 01/28/2017)]
--- NOTE | 2017-01-27 22:23 | ED NURSING NOTES ---
Clinical Report - Nurses [facility] [address] [place] [address] 01/27/2017 20:01 Patient: NELSON REYNOSO TRIAGE Triage time 20:05. Acuity: LEVEL 3. Chief Complaint: ABDOMINAL PAIN and (Vomiting, low back pain). 20:21. Alert. SEPSIS SCREEN: Sepsis Screen. Negative (no infection suspected/documented). --20:21 Alexx Beard R.N. 20:05 01/27/17. BP: 121/66. HR: 74. RR: 17. O2 saturation: 97% on room air. Temp: 98 F (oral). Pain level now: 07/09. --20:21 Alexx Beard R.N. Weight: 49.8 kg stated. Height/Length: 63 inches Per Patient. BMI: 19.5. --20:19 Alexx Beard R.N. Medications Zofran Oral 4 mg, 2x a day (pt states 1 mg every 12 hrs ). --20:10 Alexx Beard R.N. Vitamins Oral. --20:12 Alexx Beard R.N. Allergies Compazine. --20:12 Alexx Beard R.N. Medication/allergy information source: the patient. --20:21 Alexx Beard R.N. History Arrived by EMS, and unaccompanied. Primary physician (Efrain). Onset. (1 weeks ago). Treatment EQUINE INTERN: (Zofran at home). EMS treatment EQUINE INTERN verbally communicated. Medications given- (4 mg Zofran). PAST MEDICAL HX: Immunizations: up-to-date. Last normal menstrual period- Oct 23, 2016. Confirmed : EDC: 2016. confirmed with sonogram. G 3. P 1. Ab 2. OB history: G 3; P 1; Ab 2 (patient was with twins and lost 1). SOCIAL HX: Former smoker, end date 2014. History of drug use: marijuana. (daily). No alcohol use. No infectious disease exposure. ABUSE ASSESSMENT: No report of abuse. FALL RISK ASSESSMENT: Fall risk assessment completed. No fall risk identified. NUTRITIONAL RISK ASSESSMENT: The nutritional risk assessment revealed no deficiencies. FUNCTIONAL ASSESSMENT: Functional assessment: no impairments noted. LEARNING NEEDS ASSESSMENT: The learning needs assessment revealed no barriers. SKIN INTEGRITY ASSESSMENT: Skin integrity risk assessment completed. No skin integrity risk identified. --20:21 Alexx Beard R.N. PROBLEMS: Threatened . Subchorionic Hemorrhage. Endometriosis. OB History. Spontaneous (Miscarriage). Cyclical vomiting syndrome. Fibromyalgia. Endometritis. --20:13 Alexx Beard R.N. ADDITIONAL SURGERIES: Laparoscopy. Tonsillectomy. --20:13 Alexx Beard R.N. Interventions ID band on patient. To treatment room. --20:21 Alexx Beard R.N. 19:52 01/27/2017 Site #1 started prior to arrival by EMS via IV in the left antecubital space with an 20g angiocath. --20:07 Alexx Beard R.N. PHYSICAL ASSESSMENT 20:14. To room via stretcher. Patient gowned. GENERAL / NEURO / PSYCH: Alert. Oriented X 4. HEENT: Mucous membranes are pink. RESPIRATORY: Respirations not labored. SKIN: Skin is warm and dry. --20:14 Alexx Beard R.N. 20:15 Patient activly vomiting - drinking water from the tap despite being informed that it isn't helping her nausea. --20:16 Alexx Beard R.N. NURSING PROGRESS NOTES 20:14. Head of bed elevated. Two patient identifiers checked. Call light placed in reach. Side rails up x 1. Bed placed in lowest position. Brakes of bed on. Patient ready for evaluation- chart flagged. --20:14 Alexx Beard R.N. 19:53 01/27/2017 Started bag #1 1000 mL IV Fluids IV NS (Saline); at 1000 mL/hr over 1 hour(s) via site #1. (100ml infused EQUINE INTERN). --20:22 Alexx Beard R.N. 20:25 01/27/2017 Zofran (Ondansetron HCl) IVP 4 mg given over 2 minute(s) via site #1. Allergies verified and confirmed 5 rights. IV patency established. IV site checked: no pain, redness, or swelling. IV flushed thoroughly pre- and post-medication administration. --20:25 Alexx Beard R.N. 20:33 Patient reports unable to void now. --20:38 Alexx Beard R.N. 20:38 pathological technician with pt for blood draw. --20:38 Alexx Beard R.N. 20:28 01/27/2017 Reglan (Metoclopramide HCl) IVP 10 mg given over 2 minute(s) via site #1. Allergies verified and confirmed 5 rights. IV patency established. IV site checked: no pain, redness, or swelling. IV flushed thoroughly pre- and post-medication administration. --20:39 Alexx Beard R.N. 20:43. Patient ID band checked for patient name and birthdate: patient confirmed. Clean catch urine collected with return of yellow-colored clear urine; sample sent to lab for urinalysis. Specimen labeled in the presence of the patient. --20:48 Alexx Beard R.N. 20:46 01/27/2017 Tylenol (Acetaminophen) PO 1000 mg given. Allergies verified and confirmed 5 rights. --20:49 Alexx Beard R.N. 21:01 Pelvic exam completed by LUIS Kulkarni. --21:18 Alexx Beard R.N. 21:12 Patient given additional pillow and 2 warm blankets. --21:17 Alexx Beard R.N. 21:34 01/27/17. BP: 96/49. HR: 89. RR: 16. O2 saturation: 99%. --21:39 Alexx Beard R.N. 21:38. The patient is calm and resting quietly. SKIN: Skin is warm and dry. --21:39 Alexx Beard R.N. 21:40 01/27/2017 PHENERGAN (Promethazine HCl) IVP 25 mg given over 2 minute(s) via site #1. Allergies verified and confirmed 5 rights. IV patency established. IV site checked: no pain, redness, or swelling. IV flushed thoroughly pre- and post-medication administration. --21:42 Alexx Beard R.N. 22:07 01/27/2017 IV Fluids IV NS Bag Change: bag #1 infused. Total amount infused: 1000. STARTED bag #2 at 1000 mL/hr via IV pump. IV patency established. IV site checked: no pain, redness, or swelling. IV flushed thoroughly. --22:07 Alexx Baerd R.N. 22:25 recreational therapy technician's x 2 attempted to draw blood - unable, lab called. --22:54 Alexx Beard R.N. 22:42 pathological technician with pt for blood draw. --22:54 Alexx Beard R.N. 22:55 Ultraound tech with pt for exam. --22:55 Alexx Beard R.N. 23:06 01/27/2017 IV Fluids IV NS Discontinued: bag #2 infused. Total amount infused: 1000 mL. IV patency established. IV site checked: no pain, redness, or swelling. IV flushed thoroughly. --23:06 Alexx Beard R.N. 00:03 01/28/17. BP: 105/57. HR: 83. RR: 16. O2 saturation: 100% on room air. --00:03 Alexx Beard R.N. The patient is calm and resting quietly. SKIN: Skin is warm and dry. --00:03 Alexx Beard R.N. 00:28 01/28/2017 Zofran (Ondansetron HCl) IVP 4 mg given over 2 minute(s) via site #1. Allergies verified and confirmed 5 rights. IV patency established. IV site checked: no pain, redness, or swelling. IV flushed thoroughly pre- and post-medication administration. --00:30 Alexx Beard R.N. DISPOSITION / DISCHARGE Condition at departure: improved and stable. No learning barriers present. Admitted to Acute Care. Transported via stretcher by [employer]. Patient's personal items include, Other belongings; items were placed in belongings bag and transported with the patient. She did not have glasses, contacts, dentures or a hearing aid. FALL RISK ASSESSMENT: Fall risk assessment completed. No fall risk identified. --00:38 Alexx Beard R.N. 00:03 01/28/17. BP: 105/57. HR: 83. RR: 16. O2 saturation: 100% on room air. Temp: 98.4 F. Pain level now: 06/09. --00:38 Alexx Beard R.N. Report was given via a phone call. Report included patient's care, treatment, medications, reviewed medication reconcilliation, and condition (including any recent changes or anticipated changes). All questions were answered. Report was acknowledged. (Dmitry MORALEZspecial needs caregiver). --00:49 Alexx Beard R.N. Departure time: 56. --01:01 Alexx Beard R.N. Locked/Released at 01/28/2017 1:02 by Alexx Berad R.N.
--- NOTE | 2017-01-27 22:23 | ED NURSING NOTES ---
Clinical Report - Nurses [facility] [address] [place] [address] 01/27/2017 20:01 Patient: NELSON REYNOSO TRIAGE Triage time 20:05. Acuity: LEVEL 3. Chief Complaint: ABDOMINAL PAIN and (Vomiting, low back pain). 20:21. Alert. SEPSIS SCREEN: Sepsis Screen. Negative (no infection suspected/documented). --20:21 Alexx Beard R.N. 20:05 01/27/17. BP: 121/66. HR: 74. RR: 17. O2 saturation: 97% on room air. Temp: 98 F (oral). Pain level now: 07/09. --20:21 Alexx Beard R.N. Weight: 49.8 kg stated. Height/Length: 63 inches Per Patient. BMI: 19.5. --20:19 Alexx Beard R.N. Medications Zofran Oral 4 mg, 2x a day (pt states 1 mg every 12 hrs ). --20:10 Alexx Beard R.N. Vitamins Oral. --20:12 Alexx Beard R.N. Allergies Compazine. --20:12 Alexx Beard R.N. Medication/allergy information source: the patient. --20:21 Alexx Beard R.N. History Arrived by EMS, and unaccompanied. Primary physician (Efrain). Onset. (1 weeks ago). Treatment LICENSED SALES PRODUCER: (Zofran at home). EMS treatment LICENSED SALES PRODUCER verbally communicated. Medications given- (4 mg Zofran). PAST MEDICAL HX: Immunizations: up-to-date. Last normal menstrual period- Oct 23, 2016. Confirmed : EDC: 2016. confirmed with sonogram. G 3. P 1. Ab 2. OB history: G 3; P 1; Ab 2 (patient was with twins and lost 1). SOCIAL HX: Former smoker, end date 2014. History of drug use: marijuana. (daily). No alcohol use. No infectious disease exposure. ABUSE ASSESSMENT: No report of abuse. FALL RISK ASSESSMENT: Fall risk assessment completed. No fall risk identified. NUTRITIONAL RISK ASSESSMENT: The nutritional risk assessment revealed no deficiencies. FUNCTIONAL ASSESSMENT: Functional assessment: no impairments noted. LEARNING NEEDS ASSESSMENT: The learning needs assessment revealed no barriers. SKIN INTEGRITY ASSESSMENT: Skin integrity risk assessment completed. No skin integrity risk identified. --20:21 Alexx Beard R.N. PROBLEMS: Threatened . Subchorionic Hemorrhage. Endometriosis. OB History. Spontaneous (Miscarriage). Cyclical vomiting syndrome. Fibromyalgia. Endometritis. --20:13 Alexx Beard R.N. ADDITIONAL SURGERIES: Laparoscopy. Tonsillectomy. --20:13 Alexx Beard R.N. Interventions ID band on patient. To treatment room. --20:21 Alexx Beard R.N. 19:52 01/27/2017 Site #1 started prior to arrival by EMS via IV in the left antecubital space with an 20g angiocath. --20:07 Alexx Beard R.N. PHYSICAL ASSESSMENT 20:14. To room via stretcher. Patient gowned. GENERAL / NEURO / PSYCH: Alert. Oriented X 4. HEENT: Mucous membranes are pink. RESPIRATORY: Respirations not labored. SKIN: Skin is warm and dry. --20:14 Alexx Beard R.N. 20:15 Patient activly vomiting - drinking water from the tap despite being informed that it isn't helping her nausea. --20:16 Alexx Beard R.N. NURSING PROGRESS NOTES 20:14. Head of bed elevated. Two patient identifiers checked. Call light placed in reach. Side rails up x 1. Bed placed in lowest position. Brakes of bed on. Patient ready for evaluation- chart flagged. --20:14 Alexx Beard R.N. 19:53 01/27/2017 Started bag #1 1000 mL IV Fluids IV NS (Saline); at 1000 mL/hr over 1 hour(s) via site #1. (100ml infused LICENSED SALES PRODUCER). --20:22 Alexx Beard R.N. 20:25 01/27/2017 Zofran (Ondansetron HCl) IVP 4 mg given over 2 minute(s) via site #1. Allergies verified and confirmed 5 rights. IV patency established. IV site checked: no pain, redness, or swelling. IV flushed thoroughly pre- and post-medication administration. --20:25 Alexx Beard R.N. 20:33 Patient reports unable to void now. --20:38 Alexx Beard R.N. 20:38 aviation technician with pt for blood draw. --20:38 Alexx Beard R.N. 20:28 01/27/2017 Reglan (Metoclopramide HCl) IVP 10 mg given over 2 minute(s) via site #1. Allergies verified and confirmed 5 rights. IV patency established. IV site checked: no pain, redness, or swelling. IV flushed thoroughly pre- and post-medication administration. --20:39 Alexx Beard R.N. 20:43. Patient ID band checked for patient name and birthdate: patient confirmed. Clean catch urine collected with return of yellow-colored clear urine; sample sent to lab for urinalysis. Specimen labeled in the presence of the patient. --20:48 Alexx Beard R.N. 20:46 01/27/2017 Tylenol (Acetaminophen) PO 1000 mg given. Allergies verified and confirmed 5 rights. --20:49 Alexx Beard R.N. 21:01 Pelvic exam completed by LUIS Kulkarni. --21:18 Alexx Beard R.N. 21:12 Patient given additional pillow and 2 warm blankets. --21:17 Alexx Beard R.N. 21:34 01/27/17. BP: 96/49. HR: 89. RR: 16. O2 saturation: 99%. --21:39 Alexx Beard R.N. 21:38. The patient is calm and resting quietly. SKIN: Skin is warm and dry. --21:39 Alexx Beard R.N. 21:40 01/27/2017 PHENERGAN (Promethazine HCl) IVP 25 mg given over 2 minute(s) via site #1. Allergies verified and confirmed 5 rights. IV patency established. IV site checked: no pain, redness, or swelling. IV flushed thoroughly pre- and post-medication administration. --21:42 Alexx Beard R.N. 22:07 01/27/2017 IV Fluids IV NS Bag Change: bag #1 infused. Total amount infused: 1000. STARTED bag #2 at 1000 mL/hr via IV pump. IV patency established. IV site checked: no pain, redness, or swelling. IV flushed thoroughly. --22:07 Alexx Beard R.N. 22:25 senior technical recruiter's x 2 attempted to draw blood - unable, lab called. --22:54 Alexx Beard R.N. 22:42 aviation technician with pt for blood draw. --22:54 Alexx Beard R.N. 22:55 Ultraound tech with pt for exam. --22:55 Alexx Beard R.N. 23:06 01/27/2017 IV Fluids IV NS Discontinued: bag #2 infused. Total amount infused: 1000 mL. IV patency established. IV site checked: no pain, redness, or swelling. IV flushed thoroughly. --23:06 Alexx Beard R.N. 00:03 01/28/17. BP: 105/57. HR: 83. RR: 16. O2 saturation: 100% on room air. --00:03 Alexx Beard R.N. The patient is calm and resting quietly. SKIN: Skin is warm and dry. --00:03 Alexx Beard R.N. 00:28 01/28/2017 Zofran (Ondansetron HCl) IVP 4 mg given over 2 minute(s) via site #1. Allergies verified and confirmed 5 rights. IV patency established. IV site checked: no pain, redness, or swelling. IV flushed thoroughly pre- and post-medication administration. --00:30 Alexx Beard R.N. DISPOSITION / DISCHARGE Condition at departure: improved and stable. No learning barriers present. Admitted to Acute Care. Transported via stretcher by Garena. Patient's personal items include, Other belongings; items were placed in belongings bag and transported with the patient. She did not have glasses, contacts, dentures or a hearing aid. FALL RISK ASSESSMENT: Fall risk assessment completed. No fall risk identified. --00:38 Alexx Beard R.N. 00:03 01/28/17. BP: 105/57. HR: 83. RR: 16. O2 saturation: 100% on room air. Temp: 98.4 F. Pain level now: 06/09. --00:38 Alexx Beard R.N. Report was given via a phone call. Report included patient's care, treatment, medications, reviewed medication reconcilliation, and condition (including any recent changes or anticipated changes). All questions were answered. Report was acknowledged. (Dmitry MORALEZmedicare specialist). --00:49 Alexx Beard R.N. Departure time: 56. --01:01 Alexx Beard R.N. Locked/Released at 01/28/2017 1:02 by Alexx Beard R.N.
--- NOTE | 2017-01-27 22:23 | ED ORDER SUMMARY ---
..... Patient: NELSON REYNOSO OrderSheet [facility] VisitID: [id number] [place] [address] 26y, F Registration Date/Time: 01/27/2017 ORDER SHEET Weight: 49.8 kg (stated) Allergies: Compazine GENERAL ORDERS: CBC w Diff Urgent (20:16 01/27/2017 HBivens A.R.N.P.) (Ack 20:26 CHagerty ER Cloth Hand) (20:42 CHagerty ER Cloth Hand) CMP Urgent (20:16 01/27/2017 HBivens A.R.N.P.) (Ack 20:26 CHagerty ER Cloth Hand) (20:42 CHagerty ER Cloth Hand) UA-Culture if indicated Urgent (20:16 01/27/2017 HBivens A.R.N.P.) (Ack 20:26 CHagerty ER Cloth Hand) (20:49 JQuivey R.N.) Serum Quantitative Urgent (20:16 01/27/2017 HBivens A.R.N.P.) (Ack 20:26 CHagerty ER Cloth Hand) (20:42 CHagerty ER Cloth Hand) Urine Drug Screen Urgent (20:16 01/27/2017 HBivens A.R.N.P.) (Ack 20:26 CHagerty ER Cloth Hand) (20:49 JQuivey R.N.) Pelvic Exam Setup (20:16 01/27/2017 HBivens A.R.N.P.) (21:07 JQuivey R.N.) US Abdomen Complete (No) Urgent (21:50 01/27/2017 HBivens A.R.N.P.) (Ack 21:52 CHagerty ER Cloth Hand) (22:21 HBivens A.R.N.P.) (Cancelled: Other22:21 HBivens A.R.N.P.) Lactate, Serum Urgent (22:18 01/27/2017 HBivens A.R.N.P.) (Ack 22:20 CHagerty ER Cloth Hand) (23:22 CHagerty ER Cloth Hand) TSH Urgent (22:18 01/27/2017 HBivens A.R.N.P.) (Ack 22:20 CHagerty ER Cloth Hand) (23:22 CHagerty ER Cloth Hand) PCT (Procalcitonin) Urgent (22:18 01/27/2017 HBivens A.R.N.P.) (Ack 22:20 CHagerty ER Cloth Hand) (23:22 CHagerty ER Cloth Hand) US Abdomen Complete (No) (look at appendix) Urgent (22:21 01/27/2017 HBivens A.R.N.P.) (Ack 22:23 CHagerty ER Cloth Hand) (23:19 JDeElena R.N.) MEDICATION ORDERS: Tylenol PO 1,000 mg (NOW) (20:49 01/27/2017 JQuivey R.N. verbal order read back to HBivens A.R.N.P.) (20:49 JQuivey R.N.) Phenergan IV 25 mg (HIGH ALERT MEDICATION, NOW) (21:32 01/27/2017 HBivens A.R.N.P.) (Ack 21:38 JQuivey R.N.) (21:42 JQuivey R.N.) IV FLUIDS: IV NS : initial bolus 1000 mL (1000 mL/hr), then none - for X2 (NOW) (20:15 01/27/2017 HBivens A.R.N.P.) (20:22 JQuivey R.N.) Zofran IV 4 mg (NOW) (20:15 01/27/2017 HBivens A.R.N.P.) (20:25 JQuivey R.N.) IV Saline Lock (20:16 01/27/2017 HBivens A.R.N.P.) (20:22 JQuivey R.N.) Reglan IV 10 mg (NOW) (20:24 01/27/2017 HBivens A.R.N.P.) (20:39 JQuivey R.N.) Zofran IV 4 mg (NOW) (00:12 01/28/2017 Em Dahl) (0:30 JQuivey R.N.) ORDER SHEET NOTES: [Electronically signed by Alexx Beard R.N. (01:02 01/28/2017)] [Electronically signed by Jann Owens Dr. (02:45 01/28/2017)] [Electronically locked/signed by Alexx Beard R.N. (:02 01/28/2017)]
--- NOTE | 2017-01-27 23:28 | DIAGNOSTIC IMAGING REPORT ---
PROCEDURE: US ABDOMEN ULTRASOUND-COMPLETE INDICATION: ABDOMINAL PAIN TECHNIQUE: Milligan scale and color Doppler sonographic images of the abdomen were obtained. COMPARISON: None. FINDINGS: There is no evidence of a right lower quadrant distended noncompressible viscus. There is a loop of bowel which may represent the appendix measuring 2.7 mm. There is no right lower quadrant mesenteric adenitis. Normal gallbladder and right kidney without hydronephrosis. No evidence of free fluid. IMPRESSION: 1. No ultrasound evidence of acute appendicitis. 2. Results discussed with Dr. Owens
[2017-01-28 01:18] VITALS: BP 124/55
[2017-01-28] MEDS ORDERED: ZOFRAN ODT4 MG PO (02:18)
[2017-01-28] MEDS ORDERED: PRENATAL1 TAB PO (02:20)
--- NOTE | 2017-01-28 02:45 | ED MED RECONCILIATION SUMMARY ---
Patient: NELSON REYNOSO Medication Reconciliation Report [facility] VisitID: [id number] [address] [place] [address] 26y, F Registration Date/Time: 01/27/2017 Weight: 49.8 kg Height/Length: 63 in. BMI: 19.5 ALLERGIES: Compazine The patient's Home Medications are listed below: THE FOLLOWING MEDICATIONS NEED TO BE RECONCILED: Vitamins Oral Zofran Oral 4 mg, 2x a day, pt states 1 mg every 12 hrs The source(s) of the original Home Medication information: patient The following Medications were given to the patient in the Emergency Department: IV NS IV Fluids bolus 0, then 1000 mL/hr, administered: 01/27/2017 7:53:00 PM Zofran [IVP] IVP 4 mg, administered: 01/27/2017 8:25:00 PM Reglan [IVP] IVP 10 mg, administered: 01/27/2017 8:28:00 PM Tylenol [PO] PO 1000 mg, administered: 01/27/2017 8:46:00 PM PHENERGAN [IVP] IVP 25 mg, administered: 01/27/2017 9:40:00 PM Zofran [IVP] IVP 4 mg, administered: 01/28/2017 12:28:00 AM The following Medications were prescribed to the patient: None.
--- NOTE | 2017-01-28 02:45 | ED DISCHARGE INSTRUCTIONS ---
Patient: NELSON REYNOSO General Instructions [facility] VisitID: [id number] [address] [place] [address] 26y, F Registration Date/Time: 01/27/2017 Vomiting with nausea. Leukocytopenia. (Electronically signed by Jann Owens Dr. 01/28/2017 2:45)
--- NOTE | 2017-01-28 02:45 | ED MAR SUMMARY ---
..... Medication Administration Record [facility] [address] [place] [address] Patient: NELSON REYNOSO Visit ID: [id number] 26y, F Weight: 49.8 kg Height/Length: 63 in BMI: 19.5 ALLERGIES: Compazine Start 19:53 01/27/2017 Alexx Beard R.N., Stop 23:06 01/27/2017 Alexx Beard R.N. Medication Administered: IV NS (SALINE), Dose: IV Fluids over 1 hour(s), Rate: 1000 mL/hr, Dispensed: 1000 mL bag, Site: #1 left AC. Medication Ordered: IV NS : initial bolus 1000 mL (1000 mL/hr), then none - for X2 (NOW). Given 20:25 01/27/2017 Alexx Beard R.N. Medication Administered: ZOFRAN [IVP] (ONDANSETRON HCL), Dose: 4 mg IVP over 2 minute(s), Site: #1 left AC. Medication Ordered: Zofran IV 4 mg (NOW). Given 20:28 01/27/2017 Alexx Beard R.N. Medication Administered: REGLAN [IVP] (METOCLOPRAMIDE HCL), Dose: 10 mg IVP over 2 minute(s), Site: #1 left AC. Medication Ordered: Reglan IV 10 mg (NOW). Given 20:46 01/27/2017 Alexx Beard R.N. Medication Administered: TYLENOL [PO] (ACETAMINOPHEN), Dose: 1000 mg PO. Medication Ordered: Tylenol PO 1,000 mg (NOW). Given 21:40 01/27/2017 Alexx Beard R.N. Medication Administered: PHENERGAN [IVP] (PROMETHAZINE HCL), Dose: 25 mg IVP over 2 minute(s), Site: #1 left AC. Medication Ordered: Phenergan IV 25 mg (HIGH ALERT MEDICATION, NOW). Given 00:28 01/28/2017 Alexx Beard R.N. Medication Administered: ZOFRAN [IVP] (ONDANSETRON HCL), Dose: 4 mg IVP over 2 minute(s), Site: #1 left AC. Medication Ordered: Zofran IV 4 mg (NOW).
--- NOTE | 2017-01-28 02:45 | ED DISCHARGE INSTRUCTIONS ---
Patient: NELSON REYNOSO General Instructions [facility] VisitID: [id number] [address] [place] [address] 26y, F Registration Date/Time: 01/27/2017 Vomiting with nausea. Leukocytopenia. (Electronically signed by Jann Owens Dr. 01/28/2017 2:45)
--- NOTE | 2017-01-28 02:45 | ED MED RECONCILIATION SUMMARY ---
Patient: NELSON REYNOSO Medication Reconciliation Report [facility] VisitID: [id number] [address] [place] [address] 26y, F Registration Date/Time: 01/27/2017 Weight: 49.8 kg Height/Length: 63 in. BMI: 19.5 ALLERGIES: Compazine The patient's Home Medications are listed below: THE FOLLOWING MEDICATIONS NEED TO BE RECONCILED: Vitamins Oral Zofran Oral 4 mg, 2x a day, pt states 1 mg every 12 hrs The source(s) of the original Home Medication information: patient The following Medications were given to the patient in the Emergency Department: IV NS IV Fluids bolus 0, then 1000 mL/hr, administered: 01/27/2017 7:53:00 PM Zofran [IVP] IVP 4 mg, administered: 01/27/2017 8:25:00 PM Reglan [IVP] IVP 10 mg, administered: 01/27/2017 8:28:00 PM Tylenol [PO] PO 1000 mg, administered: 01/27/2017 8:46:00 PM PHENERGAN [IVP] IVP 25 mg, administered: 01/27/2017 9:40:00 PM Zofran [IVP] IVP 4 mg, administered: 01/28/2017 12:28:00 AM The following Medications were prescribed to the patient: None.
--- NOTE | 2017-01-28 02:45 | ED MAR SUMMARY ---
..... Medication Administration Record [facility] [address] [place] [address] Patient: NELSON REYNOSO Visit ID: [id number] 26y, F Weight: 49.8 kg Height/Length: 63 in BMI: 19.5 ALLERGIES: Compazine Start 19:53 01/27/2017 Alexx Beard R.N., Stop 23:06 01/27/2017 Alexx Beard R.N. Medication Administered: IV NS (SALINE), Dose: IV Fluids over 1 hour(s), Rate: 1000 mL/hr, Dispensed: 1000 mL bag, Site: #1 left AC. Medication Ordered: IV NS : initial bolus 1000 mL (1000 mL/hr), then none - for X2 (NOW). Given 20:25 01/27/2017 Alexx Beard R.N. Medication Administered: ZOFRAN [IVP] (ONDANSETRON HCL), Dose: 4 mg IVP over 2 minute(s), Site: #1 left AC. Medication Ordered: Zofran IV 4 mg (NOW). Given 20:28 01/27/2017 Alexx Beard R.N. Medication Administered: REGLAN [IVP] (METOCLOPRAMIDE HCL), Dose: 10 mg IVP over 2 minute(s), Site: #1 left AC. Medication Ordered: Reglan IV 10 mg (NOW). Given 20:46 01/27/2017 Alexx Beard R.N. Medication Administered: TYLENOL [PO] (ACETAMINOPHEN), Dose: 1000 mg PO. Medication Ordered: Tylenol PO 1,000 mg (NOW). Given 21:40 01/27/2017 Alexx Beard R.N. Medication Administered: PHENERGAN [IVP] (PROMETHAZINE HCL), Dose: 25 mg IVP over 2 minute(s), Site: #1 left AC. Medication Ordered: Phenergan IV 25 mg (HIGH ALERT MEDICATION, NOW). Given 00:28 01/28/2017 Alexx Beard R.N. Medication Administered: ZOFRAN [IVP] (ONDANSETRON HCL), Dose: 4 mg IVP over 2 minute(s), Site: #1 left AC. Medication Ordered: Zofran IV 4 mg (NOW).
--- NOTE | 2017-01-28 03:09 | NUR ---
PT IN AND OUT OF SHOWER FREQUENTLY. C/O NAUSEA AND PAIN. SMALL AMOUNT OF PALE YELLOW, THIN EMESIS.
[2017-01-28 06:20] VITALS: BP 124/48
--- NOTE | 2017-01-28 06:49 | NUR ---
PT A&OX3. IN AND OUT OF SHOWER ENTIRE SHIFT R/T DISCOMFORT FROM ABD PAIN AND N/V. FREQUENT EMESIS; WATERY, PALE YELLOW. AMBULATES INDEPENDENTLY USING IV POLE FOR SUPPORT. PERIPHERAL IV IN LAC PATENT, FLUSHES EASILY; FLUIDS RUNNING WITHOUT PROBLEM. PERSISTENT C/O ABD PAIN AND NAUSEA; PRN PHENERGAN AND ZOFRAN ADMINISTERED WITH MODERATE SUCCESS. URINE CULTURE ORDERED R/T HIGH WBC. TO REMAIN NPO (EXCEPT FOR PO MEDS) UNTIL FURTHER EVALUATION. VSS.
[2017-01-28 10:18] VITALS: BP 129/62
--- NOTE | 2017-01-28 15:00 | NUR ---
PT HAS BEEN IN AND OUT OF THE SHOWER ALL DAY. SHE STATES, "THE SHOWER MAKES ME FEEL BETTER AND I DON'T PUKE IF I SIT IN THE SHOWER." DR BACA IN TO ASSESS PT THIS AM. LABS DRAWN. WBC'S DOWN FROM 23.4 TO 16.8. TOTAL EMESIS TODAY 1475cc. DR. BACA NOTIFIED AND NEW ORDERS RECEIVED. GAVE 1L BOLUS OF NS AND GAVE 0.5mg ATIVAN FOR SEVERE ANXIETY AND VOMITING. WCTM.
--- NOTE | 2017-01-28 16:06 | NUR ---
NUTRITION NOTE: Pt admitted with dx/o cyclic vomiting, abd pain, leukocytosis, 14 weeks . Pt is currently NPO 2/2 N/V. IVFs in place providing ~612 kcals with dextrose (D5). Pt is currently on prn antiemetic rx. Pt is observation status at this point. RD to follow up with complete assessment per protocol.
--- NOTE | 2017-01-28 16:30 | NUR ---
PT STATED, "THE ATIVAN WORKED GREAT. I HAVE NO NAUSEA RIGHT NOW." DR BACA NOTIFIED THAT THE ATIVAN WORKED AND PT HAS HAD NO EMESIS IN 1.5 HOURS. STILL SITTING IN THE SHOWER TO RELIEVE BODY SYMPTOMS. C/O HOT PIN LIKE NEEDLES ON TOP OF HER HEAD AND EXTREMETIES. HAS BEEN INC OF URINE WHEN SHE VOMITS, ATTENDS GIVEN FOR PROTECTION AND COMFORT. UO UNMEASUREABLE SHE HAS BEEN INC A SEVERAL TIMES TODAY. SMALL AMOUNT YELLOWISH/PINK DRAINAGE COMING FROM VAGINA.
[2017-01-28 18:25] VITALS: BP 126/84
--- NOTE | 2017-01-28 19:21 | NUR ---
PATIENT RESTING IN BED NOW, HAS BEEN UP TO SHOWER TODAY, AND WALKING AROUND ROOM. ALERT AND ORIENTED.WAS TOLD IN REPORT DR IS AWARE OF CURRENT LAB VALUES.
--- NOTE | 2017-01-28 19:43 | HISTORY AND PHYSICAL ---
ADMITTED: 01/27/2017 PRIMARY CARE PHYSICIAN: Yara Zuniga MD HISTORY OF PRESENT ILLNESS: This is a 26-year-old , currently at 14 and 1/7 weeks gestation by 6-week ultrasound giving her a due date of 07/28/2017, presenting to the hospital with complaints of nausea, vomiting, and abdominal pain. The patient states that she has endometriosis and cyclical vomiting syndrome, in addition to fibromyalgia. She states that she had a miscarriage in August of this last year and was feeling fine until her . She uses marijuana daily and states that she has been having significant problems with nausea and vomiting with abdominal pain over the last several weeks, getting progressively worse. She has not gone in to her primary care provider to have this evaluated. She also complains of heartburn as well. She denies any diarrhea or constipation, any pain or burning with urination, any vaginal discharge or vaginal bleeding. MEDICAL/SURGICAL HISTORY: Past medical history: The patient is a -0-1-1, with a spontaneous miscarriage 08/2016, endometriosis, cyclic vomiting syndrome, fibromyalgia. MEDICATIONS: 1. vitamins 1 tablet p.o. daily. 2. Zofran 4 mg p.o. q.4 hours p.r.n. nausea. ALLERGIES: 1. COMPAZINE. SOCIAL HISTORY: The patient lives with her boyfriend and her son. She smokes marijuana daily. FAMILY HISTORY: She has a significant family history of alcohol abuse. REVIEW OF SYSTEMS: A full 12 point ROS was negative except HPI. PHYSICAL EXAMINATION: VITAL SIGNS: Blood pressure is 124/48, pulse is 89, respiratory rate of 18, O2 saturation 100% on room air, T-max 37.1 degrees Celsius. GENERAL: This is a healthy-appearing female, walking around the room, in no apparent distress. HEENT: Head is atraumatic, normocephalic. Pupils are equal, round, and reactive to light with accommodation bilaterally. Extraocular muscles are intact bilaterally. Mouth is tacky. Trachea is midline. NECK: There is no JVD. HEART: S1, S2, regular rate and rhythm. No S3, S4, murmurs, gallops, or rubs. LUNGS: Clear to auscultation bilaterally. ABDOMEN: Soft, nontender, nondistended without hepatosplenomegaly or masses. Bowel sounds are active. EXTREMITIES: There is no peripheral edema. LAB/IMAGING: Laboratories: White blood cell count of 23.4, hemoglobin of 13, hematocrit of 39.7, platelets of 293,000. Sodium of 142, potassium of 3.6, chloride of 103, bicarb of 20, BUN of 17, creatinine of 0.7, glucose of 182, calcium of 8.9, total protein of 8.5. Albumin of 4.3, total bilirubin of 0.7, alk phos of 52, AST of 18, ALT of 18. Lactic acid 1.4. TSH of 1.2. HCG is 64,323. Procalcitonin is less than 0.5. Urine toxicology screen came back positive for THC. The patient does have an ultrasound on 12/01/2016 showing an intrauterine with a subchorionic hemorrhage at 6 weeks. She also has an abdominal ultrasound from 01/27/2017 that is negative for an appendicitis. IMPRESSION: 1. This is a 26-year-old at 14-1/7 weeks' gestation, presenting to hospital with nausea, vomiting and abdominal pain, likely secondary to acute THC toxicity. 2. Her leukocytosis is likely an acute phase reactant and not likely to be associated with an infection, considering her lactic acid and procalcitonin are normal. 3. She does have some mild dehydration. PLAN: 1. Fluids, electrolytes, nutrition: The patient was started on IV fluids and her bicarbonate and leukocytosis improved. 2. Infection disease: The patient does have a significant leukocytosis. We will do a Helicobacter pylori, hepatitis B, hepatitis C, and recheck her leukocytosis. 3. Gastrointestinal: The patient does have nausea and vomiting with abdominal pain. I am concerned about whether she has gastroesophageal reflux disease and have started her on pantoprazole; however, I think this is more likely cyclic vomiting syndrome from acute THC toxicity. Amylase and lipase were normal when I added them. We will monitor for the ensuing 24 hours and if not improving or resolving we will investigate further. 4. Obstetric: An obstetric ultrasound has been ordered for followup. 5. Prophylaxis: The patient is on pantoprazole for gastrointestinal ulcer prophylaxis and has sequential compression devices for deep venous thrombosis prophylaxis. 6. CODE STATUS: FULL CODE.
[2017-01-28 22:48] VITALS: BP 133/74
[2017-01-29 02:55] VITALS: BP 84/42
[2017-01-29 03:47] VITALS: BP 93/47
--- NOTE | 2017-01-29 08:22 | NUR ---
PT IS CRYING LOUDLY AND C/O NAUSEA AND PAIN IN STOMACH. SHE IS REQUESTING MEDICATIONS FOR NAUSEA AND PAIN. IV APPEARS PATENT TO RH. LUNGS CLEAR. PT WANTS ATIVAN WHILE IN SHOWER.
--- NOTE | 2017-01-29 09:54 | Progress Note ---
Subjective General Patient states she is unchanged from yesterday. Per nursing, vomittus is water. Patient is very tearful in room. No signs of pain when thinks she is unobserved. Physical Exam Vital Signs / I&Os Vital Signs Date Time Temp Pulse Resp B/P Pulse O2 O2 Flow FiO2 Ox Delivery Rate 01/29 0349 80 97 01/29 0347 93/47 05/ 0255 36.6 109 16 84/42 94 Room Air 01/29 0010 Room Air 01/28 2248 36.7 89 20 133/74 96 Room Air 01/28 1825 36.6 97 20 126/84 100 Room Air 01/28 1018 36.7 82 18 129/62 95 Room Air I&O 01/29 0000 01/28 1600 01/28 0800 Intake Total 2304 151 Output Total 1420 1475 900 Balance 884 -4020 -269 General Appearance Alert Lungs Clear to auscultation, Normal air movement Cardiovascular Regular rate and rhythm, Normal S1 and S2, No murmurs, gallops, rubs Abdomen Normal bowel sounds, Soft, No tenderness, Claims suprapubic tenderness, but no gaurding on exam. No peritoneal signs. Extremities No edema Assessment and Plan Problem List 1. Cyclical vomiting, intractable Plan Possibly 2/2 THC toxicity. Usually improved 24-48 hrs after cessation. Will monitor closely today. 2. Plan Will get OB US. 3. Moderate tetrahydrocannabinol (THC) dependence Plan Will monitor to monitor. 4. Abdominal pain Plan Suprapubic. will get GC and Ob US. 5. Leukocytosis Plan Improving. procalcitonin and lactic acid reassuring. Will continue to monitor, however, no s/s infection. 6. Anemia Plan worsening. Likely dilutional, however, will get guiac stool to futher evaluate. 7. Hypokalemia Plan Replacing.
[2017-01-29 10:46] VITALS: BP 118/57
--- NOTE | 2017-01-29 10:51 | NUR ---
NUTRITION ASESSMENT: S: Pt admitted wiht dx/o cyclic vomiting, abdominal pain, abd pain, leukocytosis, 14 weeks . Went to talk with pt this am, pt crying, talking with care staff. O: Diet Rx: NPO NKFA Wt: 50 kg Ht: 63" IBW: 53-60 kg %IBW: 89.2% BMI: 19.5 Est Kcals: ~0429-6226 kcals per day (25-30 kcals per kg +250 kcals for preg) Est Pro: ~56-67 g pre day
--- NOTE | 2017-01-29 12:46 | DIAGNOSTIC IMAGING REPORT ---
PROCEDURE: US OB RE-EVALUATION INDICATION: subchorionic hemorrhage TECHNIQUE: Transabdominal bonner scale and color Doppler imaging was obtained of the gravid uterus. COMPARISON: OB ultrasound 12/01/2016 FINDINGS: Single live intrauterine is in transverse presentation. Regular heart rate at 162 beats per minute. Placenta is posterior and right-sided and has a normal appearance without previa or abruption. The cervix is closed and measures 3.5 cm in length. [place]-rump length is 8.3 cm which corresponds to 14 weeks and 2 days. There is a perigestational bleed on the left that measures up to 2.4 x 2.2 x 1.9 cm. IMPRESSION: 1. Single live intrauterine at 14 weeks and 2 days. GUNNAR 07/28/2017 2. Perigestational bleed on the left measuring 2.4 x 2.2 x 1.9 cm.
--- NOTE | 2017-01-29 12:46 | DIAGNOSTIC IMAGING REPORT ---
PROCEDURE: US OB RE-EVALUATION INDICATION: subchorionic hemorrhage TECHNIQUE: Transabdominal bonner scale and color Doppler imaging was obtained of the gravid uterus. COMPARISON: OB ultrasound 12/01/2016 FINDINGS: Single live intrauterine is in transverse presentation. Regular heart rate at 162 beats per minute. Placenta is posterior and right-sided and has a normal appearance without previa or abruption. The cervix is closed and measures 3.5 cm in length. [place]-rump length is 8.3 cm which corresponds to 14 weeks and 2 days. There is a perigestational bleed on the left that measures up to 2.4 x 2.2 x 1.9 cm. IMPRESSION: 1. Single live intrauterine at 14 weeks and 2 days. GUNNAR 07/28/2017 2. Perigestational bleed on the left measuring 2.4 x 2.2 x 1.9 cm.
[2017-01-29 14:44] VITALS: BP 142/77
--- NOTE | 2017-01-29 15:34 | NUR ---
PT HAD SOME ICE CHIPS AND SHE BECAME NAUSEATED AND HAD TO TAKE A SHOWER. SHE ALSO HAS USED THE CAPSAICIN CREAM ON HER ABD WHICH TURNED IT RED AND SHE C/O IT BURNING AND SHE REQUESTED A COLD WASH RAG FOR HER ABD. HOWEVER SHE HAS REQUESTED THE CREAM 2 MORE TIMES. SHE HAS BEEN IN THE SHOWER LESS THIS AFTERNOON THAN THIS AM. SHE HAS BEEN CALMER. SHE CONT TO C/O NAUSEA BUT EMESIS HAS NOT BEEN OBSERVED. DR BACA CALLED AND CLEAR LIQUID DIET WAS ORDERED BUT WILL BE USED DISCRETIONARY IF IT CAUSES NAUSEA.
--- NOTE | 2017-01-29 16:38 | NUR ---
PT IS CRYING AND C/O BEING SCARED THAT CPS WILL REMOVE HER CHILD. SHE IS IN THE SHOWER AGAIN AND HAS RETCHING. SHE HAS BEEN MEDICATED WITH ATIVAN 0.5 MG (SHE IS AWARE THAT THIS IS THE LAST BID DOSE FOR THE DAY).
--- NOTE | 2017-01-29 18:09 | NUR ---
PT WAS ABLE TO HOLD DOWN 2 JE[address] AT THIS TIME[address] DR BACA HAS BEEN UPDATED ON THIS. PT CONT TO TAKE SHOWERS BUT STATES NAUSEA IS BETTER. WILL CONT TO MONITOR.
[2017-01-29 19:57] VITALS: BP 119/65
--- NOTE | 2017-01-29 19:57 | NUR ---
AT BEDSIDE REPORT, PATIENT WAS IN SHOWER, ASKING FOR NAUSEA MEDS AND CAPCISIAN CREAM. FLAT AFFECT AND BRIEF WITH CONVERSATION. USES CALL LIGHT FREQUENTLY, HAS REQUESTED DILAUDID, PERCOCET, VICODEN AND LIQUID TYLENOL. SHE STATES "ALL I NEED IS A GOOD DOSE OF MEDICATION AND THEN ILL BE ABLE TO GO HOME, THATS WHAT HAS WORKED IN THE PAST". RN EXPLAINED FOR THE SAFETY OF THE BABY, WE ARE LIMITED ON THE TYPES AND DOSAGES OF MEDICATIONS WE CAN GIVE HER. PATIENT STATED SHE DID NOT CARE, BECAME TEARFUL AND DISCUSSED HOW SHE NEEDS TO BE HOME WITH THE FAMILY SHE HAS THAT IS HERE. PATIENT REQUESTING CLUSTERED CARE, SHE IS HAVING LITTLE TO NO SLEEP. SPOKE WITH NAC REGARDING THIS. ASSESSMENT COMPLETED. WCTM.
[2017-01-29 22:24] VITALS: BP 119/58
[2017-01-30 02:00] VITALS: BP 124/65
--- NOTE | 2017-01-30 03:23 | NUR ---
patient is in the shower again, crying, fearful her child will be "taken away from me and I won't be able to defend myself". she states she doesnt "see how this (refering to her cannibis use) is a problem now because I did the same thing with my last and it was ok". she is upset the professor of social work reported her to CPS. This RN explained our legal obligation to do so, however, she does not believe this, stating none of her other providers have done this. she has agreed to talk to the professor of social work later today. she is requesting that she can bring her service dog in today. she had a jello about an hour ago and tolerated it well. pt is refusing to drink water however, stating this makes her nauseous. patient has been cooperative with and appreciative of care. receiving multiple antiemetics PRN around the clock. pt reports some relief but has also requested benadryl and "higher doses of the IV stuff" recently. education provided. donell.
--- NOTE | 2017-01-30 05:29 | NUR ---
patient's affect and outlook have changed. patient appears more cheerful and is optimistic regarding her nausea control and subsequent abdominal pain relief. she stated she hopes she will be discharge today and feels like "we'e got past the worst part". she is sitting upright in bed, watching television. no needs a this time. wctm.
[2017-01-30 05:35] VITALS: BP 114/63
--- NOTE | 2017-01-30 06:47 | NUR ---
patient in shower. c/o severe nausea with emesis x1 (per pt report, no emesis seen), no retching noted. medicated with ativan for nausea and anxiety. patient is claiming she is never going to eat again. prior to this episode, she was able to tolerate sips of broth and apple juice. donell.
--- NOTE | 2017-01-30 08:27 | NUR ---
PT SLEEPING DURING BEDSIDE REPORT THIS AM AT 0705. UPON WAKING UP, PT C/O N/V. NO EMESIS VISUALIZED. REMINDED PT TO VOMIT IN RECEPTACLE FOR MEASUREMENT BY STAFF. ADMIN IV ZOFRAN WITHOUT MUCH RELIEF, FOLLOWED BY DOSE OF PHENERGAN. PT NOW IN SHOWER. PT STATES IT HELPS WITH N/V/PAIN/ANXIETY. REQUESTED ATIVAN AND PROTONIX. INSTRUCTED PT TO ELEVATE HOB WHILE IN BED TO ASSIST WITH ACID REFLUX RELIEF. PT BECAME TEARFUL AND STATE SHE WANTED TO GO HOME AND TAKE CARE OF HER SON. "AFRAID CPS WILL SNATCH HIM UP" WHILE SHE IS HERE. STATES SHE DOESN'T UNDERSTAND WHY WE CAN'T GIVE HER HIGHER DOSES OF HER MEDICATION. THIS RN EXPLAINED WE ARE RESPONSIBLE FOR THE CARE OF BOTH HER AND HER UNBORN CHILD, BOTH ARE OUR PATIENTS AND HIGHER DOSES ARE NOT SAFE FOR HER AND BABY. PT STATED HER BOYFRIEND WANTS HER TO HAVE AN . ASKED IF SHE WANTED TO, PT REPLIED "I WANT THIS BABY MORE THAN ANYTHING". ASKED IF HER SON WAS SAFE AT HOME WITH HER BOYFRIEND (CHILD'S FATHER). SHE STATED SHE HOPES SO. HE WON'T BE LOVED OR PAID ATTENTION TO, BUT HE'LL BE ALIVE. ASKED IF PT WANTS OUT OF HER CURRENT LIVING SITUATION. STATES SHE IS AFRAID SHE WON'T BE ABLE TO PROVIDE FOR HER KIDS FINACIALLY. ASKED IF PT WOULD LIKE ASSURANCE SENIOR MANAGER TO COME IN AND DISCUSS SOME OPTIONS TO HELP HER, SHE AGREED. THIS RN SPOKE TO ASSURANCE SENIOR MANAGER - WILL COME IN AND SPEAK WITH PT TODAY. PT REMAINS IN SHOWER. SUZIE. CITLALLI.
--- NOTE | 2017-01-30 09:20 | NUR ---
PT BACK IN SHOWER - STATES IS HELPS TO RELAX HER. STATES IS A LITTLE NAUSEAUS AND PAIN IS TOLORABLE. DID NOT REQUEST MEDICATION AT THIS TIME. WCTM.
--- NOTE | 2017-01-30 11:33 | NUR ---
PT AMBULATING LOOP WITH FAMILY.
--- NOTE | 2017-01-30 12:40 | NUR ---
NUTRITION FOLLOW UP NOTE: Pt started on clear liquid diet but had emesis after per I and O, rev'd nsg notes. This RD concerned about pts lack of nutritional intake and nutritional needs for pt and growth and development. Suggest consider nutrition support, TPN? RD avail for consult and will continue to closely monitor. Pt appears to be at high nutritional risk at this time.
--- NOTE | 2017-01-30 13:26 | NUR ---
PT CONTINUES TO SIT IN SHOWER MOST OF SHIFT. C/O LOWER LEFT BACK PAIN - STATES IT "FEELS TIRED". ALSO STATES "TUMMY HURTS. IT FEELS LIKE SOMEONE KICKED ME". TEARFUL. DECLINES WARM AND COLD THERAPY. DECLINES GI COCKTAIL. REQUESTING ATIVAN AND SOMETHING FOR NAUSEA. UNABLE TO GIVE AT THIS TIME - NOT DUE. WOULD LIKE SOMETHING IV. ADVISED PT TO SLOWLY EAT ICE CHIPS TO HELP WITH NAUSEA. ATTEMPTING TO CONTACT DR - AWAITING RESPONSE. USES CALL LIGHT - ABLE TO MAKE NEEDS KNOWN. WCTM.
--- NOTE | 2017-01-30 13:52 | Provider's Discharge Care Plan ---
Problem, Goal, Plan Problem List 1. Cyclical vomiting, intractable Goals: Improve disease control, Improved health/wellness, Improve nutrition status, Therapeutic intervention Instructions: Follow up as directed, Take meds as directed, Clear liquid diet. 2. Goals: Normal growth/development Instructions: Follow up as directed 3. Moderate tetrahydrocannabinol (THC) dependence Goals: Improve disease control Instructions: Stop using THC.
[2017-01-30 14:00] VITALS: BP 126/69
[2017-01-30] MEDS ORDERED: [UNRECOGNIZED DRUG - OTHER] PO (14:00)
--- NOTE | 2017-01-30 15:46 | DISCHARGE SUMMARY ---
ADMIT DATE: 01/27/2017 DISCHARGE DATE: 01/30/2017 ADMISSION DIAGNOSES: 1. Intractable nausea and vomiting. 2. . 3. Leukocytosis. DISCHARGE DIAGNOSES: 1. Leukocytosis without infectious findings, resolved with IV fluids. 2. Hypokalemia, replaced. 3. Cyclic vomiting syndrome. No signs or symptoms of malnutrition on labs. The patient rehydrated with IV fluids. The patient apparently has a followup plan with her primary care provider to have IV fluids in [facility] as needed for this. She is tolerating some p.o. at the time of discharge and is requesting discharge home. 4. . 5. Anemia, likely partially related to , stable. BRIEF HISTORY: This is a 26-year-old G3, P1, currently at 14-1/7 weeks' gestation by 6-week ultrasound correlating with a due of 07/28/2017, presenting to the hospital with complaints of nausea, vomiting, and abdominal pain. The patient states that she also has endometriosis and fibromyalgia. She states that she had a miscarriage in August and was feeling fine until her current . She uses marijuana daily and states that she has been having significant problems with nausea and vomiting with abdominal pain over the past several weeks, but getting progressively worse. She has not gone into her primary care provider to have this evaluated. She also complains of heartburn. She denies any diarrhea or constipation. No dysuria, vaginal discharge or vaginal bleeding. HOSPITAL COURSE: The patient was admitted to the hospital and was very distraught for the first 24-48 hours of her hospitalization. She was continually wanting to take showers as she stated that it was the only thing that helped her nausea and vomiting. Despite being n.p.o., the patient was copiously vomiting water. We encouraged her to not drink water in the shower, however, vomiting completely clear fluid continued. After 24-48 hours of hospitalization and not ingesting or smoking marijuana, the patient's symptoms did significantly improve and her mood seems less labile. Despite this, she continues to have frequent crying spells. She denies any suicidal ideation or homicidal ideation. Interestingly enough, when her family, especially her son comes to visit, she is completely symptom-free. She was able to keep down jello and juice prior to discharge. The patient's leukocytosis improved during her hospitalization without intervention except for IV fluids. A very elaborate evaluation for signs of infection was done and everything was normal including a lactic acid, procalcitonin, abdominal ultrasound, urinalysis, which was repeated, gonorrhea, chlamydia, hepatitis B, hepatitis C, amylase and lipase and H. pylori test. PHYSICAL EXAMINATION: GENERAL: At the time of discharge, vitals are stable. This is a well-appearing young patient walking around the room, in no apparent distress. Upon interacting with me, she becomes tearful almost immediately. HEENT: Head is atraumatic, normocephalic. Trachea is midline, there is JVD. HEART: S1, S2, regular rate and rhythm. No S3, S4, murmurs, gallops, or rubs. LUNGS: Clear to auscultation bilaterally. ABDOMEN: Soft, nontender, nondistended without hepatosplenomegaly or masses. Bowel sounds are active. There is no peripheral edema. The patient is gravid, but without any peritoneal signs or no guarding on exam. DISCHARGE INSTRUCTIONS/MEDICATIONS: The patient was requesting discharge to home at the time of discharge. I did encourage that if she gets worse or she does not continue to improve that she return or at the very least call her primary care provider. I recommended follow up with her primary care provider within 2-5 days and that she also established OB care. Diet: Clear liquid. Activity: Up ad funmi. Medications: vitamin 1 tab p.o. daily, Zofran 4 mg p.o. q.4 hours p.r.n. nausea and ranitidine 150 mg p.o. b.i.d.
--- NOTE | 2017-01-30 15:52 | NUR ---
NOTE FROM 1121 THIS MORNING: PT IN SHOWER. BOYFRIEND AND SON HERE TO VISIT. OUT OF SHOWER AND IN GOOD SPRIITS. SMILING AND VISITING WITH FAMILY.
== END 2017-01-30 16:15 | disposition home or self-care (01) ==
LOC: ED SRH 20:01 → ACUTE2 SRH 21:57 → TRANS SRH 21:57 → ED SRH 21:57 → TRANS SRH 22:24 → ACUTE2 SRH 01-28 01:08 → TRANS SRH 01-28 01:08 → ACUTE2 SRH 01-28 09:00 → TRANS SRH 01-28 09:00 → ACUTE2 SRH 01-30 16:15
PROVIDERS: ADMIT Internal Medicine
DX: O21.8 Other vomiting complicating pregnancy (principal); K31.89 Other diseases of stomach and duodenum; R11.2 Nausea with vomiting, unspecified; O99.322 Drug use complicating pregnancy, second trimester; F12.20 Cannabis dependence, uncomplicated; Z3A.14 14 weeks gestation of pregnancy; O99.012 Anemia complicating pregnancy, second trimester; D64.9 Anemia, unspecified; E87.6 Hypokalemia; D72.829 Elevated white blood cell count, unspecified; M79.7 Fibromyalgia
CPT/HCPCS: 29230; 29243; 29244; 29247; 29263; 90004; 90047; 90074; 90077; 90078; 90100; 90101; 90197; 90298; 90469; 91227; 91228; 91282; 91286; 91360; 91504; 91505; 91786; 92031; 92235; 92530; 92668; 92670; 92680; 92720; 92740; 92755; 92760; 92761; 92762; 92763; 92764; 92765; 92766; 92767; 93004; 93140; 95059; 95067; 95140; 99777